=== PATIENT | male | born 1985 | race Hispanic/Latino ===

== ENCOUNTER 2017-10-08 08:32 | Inpatient (IN) | payer BC ==
[~2017-10-08] VITALS: Ht 172.7 cm; Wt 109.3 kg
[~2017-10-08 08:32] MED LIST: CILOXAN5 ML OP; FISH OIL 1,0001 EAC2 PO; LISINOPRIL-HCT1 EACH PO; PENTASA500 MG PO; PROTONIX40 MG PO
[2017-10-08] MEDS ORDERED: ACETAMINOPHEN 325 MG TAB PO ONE ×2 (09:00→09:45)
[2017-10-08 09:40] LABS: COLOR,URINE YELLOW (YELLOW)
[2017-10-08 09:43] LABS: LEUKOCYTE ESTERASE ,URINE NEGATIVE (NEGATIVE); NITRITE,URINE POSITIVE (NEGATIVE); PROTEIN,URINE DIPSTICK 2+ (NEGATIVE)
[2017-10-08 09:44] LABS: BILIRUBIN,URINE 1+ (NEGATIVE); CLARITY,URINE SL CLOUDY (CLEAR); KETONES,URINE NEGATIVE (NEGATIVE); URINE UROBILINOGEN 0.2 mg/dL (0.2 - 1)
[2017-10-08 09:45] LABS: BACTERIA,URINE FEW /HPF; EPITHELIAL CELLS,URINE RARE /LPF; MUCUS,URINE FEW (RARE); RBC,URINE 0-5 /HPF (0-5); WBC,URINE (MAN) 0-5 /HPF (0-5)
[2017-10-08 10:07] LABS: BASOPHILS % 0.1 % (0.0-1.0); EOSINOPHILS % 0.1 % (0.0-6.0); HEMATOCRIT 34.3 % (38.2-49.6); HEMOGLOBIN 12.3 g/dL (14.0-18.0); LYMPHOCYTES # (AUTO) 1.1 (1.0-3.2); LYMPHOCYTES % 6.1 % (18.0-39.1); MEAN CORPUSCULAR HEMOGLOBIN 30.1 pg (28-32); MEAN CORPUSCULAR HGB CONC 35.9 g/dL (31-35); MEAN CORPUSCULAR VOLUME 84.1 fL (81-99); MONOCYTES # (AUTO) 0.7 (0.2-0.8); NEUTROPHILS % 89.4 % (38.7-80.0); PLATELET COUNT 342 x10e3/uL (140-360); RED BLOOD COUNT 4.08 x10e6/uL (4.3-5.7); RED CELL DISTRIBUTION WIDTH 11.8 % (11.7-14.4)
[2017-10-08 10:17] LABS: ALANINE AMINOTRANSFERASE 30 IU/L (0-55); ALBUMIN 3.6 g/dL (3.5-5.0); ALBUMIN/GLOBULIN RATIO 0.9 (0.8-2.0); ALKALINE PHOSPHATASE 64 IU/L (40-150); ANION GAP 15.2 mmol/L (8-16); BLOOD UREA NITROGEN 10 mg/dL (7-26); BUN/CREATININE RATIO 12 (6-25); CALCIUM 8.9 mg/dL (8.4-10.2); CARBON DIOXIDE 21 mmol/L (22-29); CHLORIDE 100 mmol/L (98-107); CREATININE, SERUM 0.86 mg/dL (0.72-1.25); EST GLOMERULAR FILTRATION RATE > 60 ML/MIN (60-); GLUCOSE 119 mg/dL (74-118); POTASSIUM 3.2 mmol/L (3.5-5.1); SODIUM 133 mmol/L (136-145)
[2017-10-08] MEDS ORDERED: HYDROMORPHONE 1MG/1ML INJ IV STA (10:31)
[2017-10-08] MEDS ORDERED: ONDANSETRON HCL INJ 2 MG/ML VIAL IV STA (10:31)
[2017-10-08] MEDS: D5.45%NS/KCL 20MEQ 1,000 ML IV SCH ×2 (12:45→23:27)
[2017-10-08] MEDS: PIPER-TAZ 3.375 GM 50 ML IV SCH ×2 (12:45→18:26)
[2017-10-08] MEDS ORDERED: D5.45%NS/KCL 20MEQ 1,000 ML IV ONE (13:02)
[2017-10-08] MEDS ORDERED: PIPER-TAZ 3.375 GM 50 ML ONE (13:02)
[2017-10-08] MEDS ORDERED: HYDROMORPHONE 1MG/1ML INJ ONE (13:49)
[2017-10-08] MEDS ORDERED: ONDANSETRON HCL INJ 2 MG/ML VIAL ONE (13:49)
[2017-10-08] MEDS: ONDANSETRON HCL INJ 2 MG/ML VIAL IV PRN ×2 (13:51→22:11)
[2017-10-08] MEDS: HYDROMORPHONE 1MG/1ML INJ IV PRN ×3 (13:51→22:10)
[2017-10-08] MEDS: METRONIDAZOLE 500MG/NS 100ML 100 ML IV SCH ×3 (13:51→23:27)
[2017-10-08] MEDS ORDERED: METRONIDAZOLE 500MG/NS 100ML 100 ML IV ONE (13:53)
--- NOTE | 2017-10-08 14:52 | Consultation ---
DATE OF CONSULTATION: October 08, 2017 REASON FOR CONSULTATION: Acute diverticulitis with localized perforation. The patient is a pleasant, 32-year-old male admitted complaining of lower abdominal pain that began this Monday. The pain got worse. He thought it was a urinary tract infection; however, it became more severe, the reason for which he came to the emergency room. There was no history of diarrhea, vomiting, no previous episodes. PAST MEDICAL HISTORY: Unremarkable. No previous surgery. The patient in the emergency room underwent a CT scan of the abdomen and pelvis that revealed changes consistent with acute diverticulitis with small amounts of luminal air, but no abscess, all consistent with localized diverticular perforation. PHYSICAL EXAMINATION GENERAL: A 32-year-old male in no acute distress. He is awake, alert. VITAL SIGNS: His temperature was 101. Vital signs are stable. ABDOMEN: Reveals diminished bowels sounds. There is tenderness in the right lower quadrant and suprapubic region mainly. There are no scars, no masses. ADMISSION LABS: Revealed a white count of 17,000. At this point, the EMR system is down and I was not able to see the rest of the labs. IMPRESSION: Acute diverticulitis with localized perforation. PLAN: Admit, n.p.o., stabilization with IV fluids and antibiotics. Hopefully, the patient will avoid having to undergo emergency surgery. Of note is the fact that this patient [place] of the country in the near future. Job#: [id number]
--- NOTE | 2017-10-08 14:52 | Diagnostic Imaging Report ---
EXAM: CT Abdomen and Pelvis WITH contrast INDICATION: Pain/fever COMPARISON: 02/17/2016 CT TECHNIQUE: Abdomen and Pelvis was scanned utilizing a multidetector helical scanner after administration of IV contrast. Coronal and sagittal reformations were obtained. IV CONTRAST: 100 mL Isovue-370 COMPLICATIONS: None RADIATION DOSE: Total DLP:760 mGy*cm Estimated effective dose: (DLP x 0.015 x size factor) mSv CTDIvol has been reviewed. It is below the limits set by the Radiation Protocol Committee (RPC). FINDINGS: Abdomen: Lung Bases: No acute findings. Solid Organs: Liver, adrenals, kidneys, spleen, and pancreas unremarkable. Upper GI Tract: Gastric decompression limits evaluation. No small bowel obstructive changes. Vascularity: No aortic aneurysm. Lymph Nodes: No suspicious adenopathy. Other: None. Pelvis: Bladder: Unremarkable. Other: None. Colon: Sigmoid diverticulosis with significant inflammatory changes about the sigmoid colon. There is wall thickening and extraluminal gas with no rim-enhancing fluid collection. Bones: No acute findings. IMPRESSION: 1. Sigmoid diverticulitis with evidence of rupture. No rim-enhancing/drainable abscess identified. Report e-faxed at 11:43 AM. Signed by: Dr. Olman Roldan MD on 10/08/2017 11:43 AM
[2017-10-08] MEDS ORDERED: D5.45%NS/KCL 20MEQ 1,000 ML IV SCH (15:15)
[2017-10-08] MEDS ORDERED: ONDANSETRON HCL INJ 2 MG/ML VIAL IV PRN (15:15)
[2017-10-08] MEDS ORDERED: HYDROMORPHONE 1MG/1ML INJ IV PRN (15:30)
[2017-10-08 17:20] VITALS: BP 146/76
[2017-10-08 17:21] VITALS: BP 146/76
[2017-10-08] MEDS ORDERED: METRONIDAZOLE 500MG/NS 100ML 100 ML IV SCH (18:00)
[2017-10-08] MEDS ORDERED: ACETAMINOPHEN 1000 MG/100 ML IV SCH (18:00)
[2017-10-08] MEDS ORDERED: PIPER-TAZ 3.375 GM 50 ML IV SCH (18:00)
[2017-10-08] MEDS: ACETAMINOPHEN 1000 MG/100 ML IV PRN (18:01)
[2017-10-08] MEDS ORDERED: HYDRALAZINE HCL 20 MG/ML VIAL IV PRN (18:15)
--- NOTE | 2017-10-08 18:23 | History and Physical ---
REASON FOR ADMISSION: Abdominal pain. PRIMARY CARE PHYSICIAN: [facility]. HISTORY OF PRESENT ILLNESS: Mr. Virgilio Valle is a 32-year-old male. He has past medical history of hypertension for which he takes lisinopril, hydrochlorothiazide at home. He has been in his usual state of health until Monday evening. Monday evening after dinner he started having lower abdominal pain which has gradually gotten worse. Yesterday he tried several [id number]-tlg-[id number] remedies but he did not get any better. He had nausea. Denied any vomiting. He had a loose stool today and his abdominal pain was 10 out of 10 earlier this morning, and hence he presented to the emergency room at [facility] for evaluation. Here he had a CT abdomen done that showed evidence of sigmoid diverticulitis with perforation. General surgery, Dr. Ivan, was consulted. The patient was started on Zosyn and Flagyl in the emergency room. He is n.p.o. on IV fluids. His pain is currently controlled. REVIEW OF SYSTEMS: GENERAL: He had a fever of 102 on presentation. He does have fever. Denies any focal weakness. EYES: Denies any blurry vision. ENT: Denies any ears, nose or throat pain or drainage. CARDIOVASCULAR: Denies any chest pain, shortness of breath, palpitations or syncopal episodes. RESPIRATORY: Denies any cough, shortness of breath or sputum production. GI: He does have nausea. Denies any vomiting. He does have severe abdominal pain. He did have loose stool this morning. GENITOURINARY: Denies any dysuria. Denies any frequency or urgency. INTEGUMENT: Denies any ulcers or rash. MUSCULOSKELETAL: Denies any joint pain or swelling. PSYCHIATRIC: Denies any mood changes, suicidal or homicidal ideation. PAST MEDICAL HISTORY: Includes hypertension. PAST SURGICAL HISTORY: None. ALLERGIES: NO KNOWN DRUG ALLERGIES. HOME MEDICATIONS: Include lisinopril, hydrochlorothiazide. SOCIAL HISTORY: He lives at home with his fiancee. No history of smoking. He drinks alcohol occasionally. Denies any history of drug use. FAMILY HISTORY: Father has history of hypertension and history of coronary artery disease. PHYSICAL EXAMINATION VITAL SIGNS: At this time, temperature 101.3, heart rate 96, respirations 18, blood pressure 136/88, SPO2 of 100% on room air. GENERAL: On exam, the patient is awake, alert and oriented. He is in mild distress secondary to pain. HEAD: Normocephalic, atraumatic. NECK: Supple. No JVD. CARDIOVASCULAR: Regular rate and rhythm. LUNGS: Clear to auscultation bilaterally. GI: Abdomen is soft, tender to palpation in the left lower quadrant. Bowel sounds present. NEUROLOGIC: Cranial nerves II-XII grossly intact. Power and tone normal in bilateral upper and lower extremities. PSYCHIATRIC: Normal mood and affect. INTEGUMENT: No ulcers or rash noted. MUSCULOSKELETAL: No joint swelling or tenderness noted. LABORATORY DATA: CBC: WBC count of 17.8, hemoglobin 12.3, hematocrit 34.3, platelet count 342,000. BMP: Sodium 133, potassium 3.42, chloride 100, CO2 of 21, BUN 10, creatinine 0.86 and blood glucose of 119. IMAGING: CT of the abdomen showed evidence of sigmoid diverticulitis with rupture. ASSESSMENT: A 32-year-old male with. 1. Acute sigmoid diverticulitis with rupture. 2. Leukocytosis/fever/sepsis present on admission. 3. Hypokalemia. 4. Obesity. 5. History of hypertension. PLAN: The patient will be admitted to the hospital. He will be a full admission. Will keep the patient strictly n.p.o. on IV fluids, IV Zosyn and Flagyl. Serial abdominal exams. will repeat the labs in the morning. Will replace his potassium. His blood pressure is currently stable. Will place him on p.r.n. hydralazine as needed. Will closely follow him during the hospital stay. General surgery, Dr. Ivan, was consulted to evaluate the patient as well. I have discussed with the patient at the bedside regarding the plan of care. Job#: [id number]
[2017-10-08] MEDS ORDERED: SODIUM CHLORIDE 0.9% 50ML 50 ML ONE (18:55)
[2017-10-08] MEDS ORDERED: IOPAMIDOL 370 MG/ML 200 ML INFUS..BTL INJ ONE (18:55)
[2017-10-08 20:00] VITALS: BP 144/74
[2017-10-08 21:04] VITALS: BP 144/74
[2017-10-09] VITALS (9 sets, daily range): BP systolic 114–140; BP diastolic 59–82
[2017-10-09] MEDS: ACETAMINOPHEN 1000 MG/100 ML IV PRN ×2 (00:20→14:00)
[2017-10-09] MEDS: PIPER-TAZ 3.375 GM 50 ML IV SCH ×4 (00:49→17:38)
[2017-10-09] MEDS: METRONIDAZOLE 500MG/NS 100ML 100 ML IV SCH ×4 (04:52→23:27)
[2017-10-09] MEDS: ONDANSETRON HCL INJ 2 MG/ML VIAL IV PRN ×4 (05:14→23:33)
[2017-10-09] MEDS: HYDROMORPHONE 1MG/1ML INJ IV PRN ×5 (05:14→23:33)
[2017-10-09 05:35] LABS: BASOPHILS % 0.2 % (0.0-1.0); EOSINOPHILS # (AUTO) 0.1 (0.0-0.4); EOSINOPHILS % 0.3 % (0.0-6.0); HEMATOCRIT 31.5 % (38.2-49.6); HEMOGLOBIN 11.1 g/dL (14.0-18.0); LYMPHOCYTES # (AUTO) 1.5 (1.0-3.2); LYMPHOCYTES % 8.5 % (18.0-39.1); MEAN CORPUSCULAR HEMOGLOBIN 30.3 pg (28-32); MEAN CORPUSCULAR HGB CONC 35.2 g/dL (31-35); MEAN CORPUSCULAR VOLUME 86.1 fL (81-99); MONOCYTES # (AUTO) 0.9 (0.2-0.8); NEUTROPHILS # (AUTO) 14.9 (2.1-6.9); NEUTROPHILS % 85.4 % (38.7-80.0); PLATELET COUNT 302 x10e3/uL (140-360); RED BLOOD COUNT 3.66 x10e6/uL (4.3-5.7); RED CELL DISTRIBUTION WIDTH 11.9 % (11.7-14.4)
[2017-10-09 05:56] LABS: ANION GAP 12.2 mmol/L (8-16); BLOOD UREA NITROGEN 7 mg/dL (7-26); BUN/CREATININE RATIO 8 (6-25); CALCIUM 8.6 mg/dL (8.4-10.2); CARBON DIOXIDE 25 mmol/L (22-29); CHLORIDE 101 mmol/L (98-107); CREATININE, SERUM 0.93 mg/dL (0.72-1.25); EST GLOMERULAR FILTRATION RATE > 60 ML/MIN (60-); GLUCOSE 108 mg/dL (74-118); POTASSIUM 3.2 mmol/L (3.5-5.1); SODIUM 135 mmol/L (136-145)
[2017-10-09] MEDS: PANTOPRAZOLE 40 MG 10ML VIAL IV SCH (11:06)
[2017-10-09] MEDS: D5.45%NS/KCL 20MEQ 1,000 ML IV SCH ×2 (11:06→23:17)
[2017-10-09] MEDS: LEVOFLOXACIN 500MG/D5W 100ML 100 ML IV SCH (12:58)
[2017-10-10] VITALS (7 sets, daily range): BP systolic 127–136; BP diastolic 58–75
[2017-10-10] MEDS: PIPER-TAZ 3.375 GM 50 ML IV SCH ×4 (00:30→19:08)
[2017-10-10] MEDS: HYDROMORPHONE 1MG/1ML INJ IV PRN ×5 (04:00→23:57)
[2017-10-10] MEDS: ONDANSETRON HCL INJ 2 MG/ML VIAL IV PRN ×5 (04:06→23:57)
[2017-10-10 05:44] LABS: BASOPHILS % 0.1 % (0.0-1.0); EOSINOPHILS # (AUTO) 0.1 (0.0-0.4); EOSINOPHILS % 0.6 % (0.0-6.0); HEMATOCRIT 31.6 % (38.2-49.6); LYMPHOCYTES # (AUTO) 1.4 (1.0-3.2); LYMPHOCYTES % 9.2 % (18.0-39.1); MEAN CORPUSCULAR HGB CONC 34.8 g/dL (31-35); MEAN CORPUSCULAR VOLUME 86.1 fL (81-99); MONOCYTES # (AUTO) 0.7 (0.2-0.8); MONOCYTES % 4.8 % (4.4-11.3); NEUTROPHILS # (AUTO) 12.7 (2.1-6.9); NEUTROPHILS % 84.8 % (38.7-80.0); PLATELET COUNT 350 x10e3/uL (140-360); RED BLOOD COUNT 3.67 x10e6/uL (4.3-5.7); RED CELL DISTRIBUTION WIDTH 11.9 % (11.7-14.4)
[2017-10-10] MEDS: METRONIDAZOLE 500MG/NS 100ML 100 ML IV SCH ×4 (06:00→23:51)
[2017-10-10 06:02] LABS: ANION GAP 13.3 mmol/L (8-16); BLOOD UREA NITROGEN 7 mg/dL (7-26); BUN/CREATININE RATIO 8 (6-25); CALCIUM 8.5 mg/dL (8.4-10.2); CARBON DIOXIDE 24 mmol/L (22-29); CHLORIDE 102 mmol/L (98-107); CREATININE, SERUM 0.87 mg/dL (0.72-1.25); EST GLOMERULAR FILTRATION RATE > 60 ML/MIN (60-); GLUCOSE 117 mg/dL (74-118); POTASSIUM 3.3 mmol/L (3.5-5.1); SODIUM 136 mmol/L (136-145)
[2017-10-10] MEDS: ACETAMINOPHEN 1000 MG/100 ML IV PRN ×2 (06:13→20:42)
[2017-10-10] MEDS: PANTOPRAZOLE 40 MG 10ML VIAL IV SCH (07:45)
[2017-10-10] MEDS: D5.45%NS/KCL 20MEQ 1,000 ML IV SCH ×2 (11:05→14:18)
[2017-10-10] MEDS: LEVOFLOXACIN 500MG/D5W 100ML 100 ML IV SCH (12:24)
[2017-10-11] VITALS (10 sets, daily range): BP systolic 111–135; BP diastolic 56–70
[2017-10-11] MEDS: D5.45%NS/KCL 20MEQ 1,000 ML IV SCH ×5 (00:35→23:16)
[2017-10-11] MEDS: PIPER-TAZ 3.375 GM 50 ML IV SCH ×5 (00:35→23:15)
[2017-10-11 05:00] LABS: BASOPHILS # (AUTO) 0.1 (0.0-0.1); BASOPHILS % 0.5 % (0.0-1.0); EOSINOPHILS # (AUTO) 0.2 (0.0-0.4); EOSINOPHILS % 1.6 % (0.0-6.0); HEMATOCRIT 32.9 % (38.2-49.6); HEMOGLOBIN 11.5 g/dL (14.0-18.0); LYMPHOCYTES # (AUTO) 1.8 (1.0-3.2); LYMPHOCYTES % 16.6 % (18.0-39.1); MEAN CORPUSCULAR HEMOGLOBIN 30.1 pg (28-32); MEAN CORPUSCULAR VOLUME 86.1 fL (81-99); MONOCYTES # (AUTO) 0.6 (0.2-0.8); MONOCYTES % 5.1 % (4.4-11.3); NEUTROPHILS # (AUTO) 8.4 (2.1-6.9); NEUTROPHILS % 75.7 % (38.7-80.0); PLATELET COUNT 382 x10e3/uL (140-360); RED BLOOD COUNT 3.82 x10e6/uL (4.3-5.7)
[2017-10-11 05:28] LABS: ANION GAP 13.1 mmol/L (8-16); BLOOD UREA NITROGEN 6 mg/dL (7-26); BUN/CREATININE RATIO 7 (6-25); CALCIUM 8.8 mg/dL (8.4-10.2); CARBON DIOXIDE 26 mmol/L (22-29); CHLORIDE 103 mmol/L (98-107); CREATININE, SERUM 0.88 mg/dL (0.72-1.25); EST GLOMERULAR FILTRATION RATE > 60 ML/MIN (60-); GLUCOSE 100 mg/dL (74-118); POTASSIUM 3.1 mmol/L (3.5-5.1); SODIUM 139 mmol/L (136-145)
[2017-10-11] MEDS ORDERED: ACETAMINOPHEN 1000 MG/100 ML IV PRN (05:30)
[2017-10-11] MEDS: METRONIDAZOLE 500MG/NS 100ML 100 ML IV SCH ×3 (05:31→18:20)
[2017-10-11] MEDS: HYDROMORPHONE 1MG/1ML INJ IV PRN ×4 (05:42→23:05)
[2017-10-11] MEDS: ONDANSETRON HCL INJ 2 MG/ML VIAL IV PRN ×4 (05:43→23:17)
[2017-10-11] MEDS: PANTOPRAZOLE 40 MG 10ML VIAL IV SCH (09:12)
[2017-10-11] MEDS: LEVOFLOXACIN 500MG/D5W 100ML 100 ML IV SCH (14:01)
[2017-10-11] MEDS ORDERED: POTASSIUM CHLORIDE 20 MEQ TAB CR PO STA (15:10)
[2017-10-12] VITALS (7 sets, daily range): BP systolic 122–132; BP diastolic 60–74
[2017-10-12] MEDS: METRONIDAZOLE 500MG/NS 100ML 100 ML IV SCH ×5 (00:01→22:54)
[2017-10-12] MEDS: HYDROMORPHONE 1MG/1ML INJ IV PRN ×3 (05:15→21:31)
[2017-10-12] MEDS: ONDANSETRON HCL INJ 2 MG/ML VIAL IV PRN ×3 (05:15→23:04)
[2017-10-12] MEDS: PIPER-TAZ 3.375 GM 50 ML IV SCH ×3 (06:15→17:57)
[2017-10-12] MEDS: PANTOPRAZOLE 40 MG 10ML VIAL IV SCH (09:45)
[2017-10-12] MEDS: D5.45%NS/KCL 20MEQ 1,000 ML IV SCH ×3 (10:36→22:58)
[2017-10-12 11:12] LABS: BASOPHILS # (AUTO) 0.1 (0.0-0.1); BASOPHILS % 0.4 % (0.0-1.0); EOSINOPHILS # (AUTO) 0.2 (0.0-0.4); EOSINOPHILS % 1.5 % (0.0-6.0); HEMATOCRIT 35.2 % (38.2-49.6); HEMOGLOBIN 12.5 g/dL (14.0-18.0); LYMPHOCYTES # (AUTO) 1.8 (1.0-3.2); LYMPHOCYTES % 15.6 % (18.0-39.1); MEAN CORPUSCULAR HEMOGLOBIN 30.6 pg (28-32); MEAN CORPUSCULAR HGB CONC 35.5 g/dL (31-35); MEAN CORPUSCULAR VOLUME 86.3 fL (81-99); MONOCYTES # (AUTO) 0.6 (0.2-0.8); MONOCYTES % 5.1 % (4.4-11.3); NEUTROPHILS # (AUTO) 8.7 (2.1-6.9); PLATELET COUNT 441 x10e3/uL (140-360); RED BLOOD COUNT 4.08 x10e6/uL (4.3-5.7)
[2017-10-12 11:28] LABS: ANION GAP 13.3 mmol/L (8-16); BLOOD UREA NITROGEN 5 mg/dL (7-26); BUN/CREATININE RATIO 6 (6-25); CALCIUM 8.9 mg/dL (8.4-10.2); CARBON DIOXIDE 26 mmol/L (22-29); CHLORIDE 101 mmol/L (98-107); CREATININE, SERUM 0.83 mg/dL (0.72-1.25); EST GLOMERULAR FILTRATION RATE > 60 ML/MIN (60-); GLUCOSE 90 mg/dL (74-118); POTASSIUM 3.3 mmol/L (3.5-5.1); SODIUM 137 mmol/L (136-145)
[2017-10-12] MEDS: LEVOFLOXACIN 500MG/D5W 100ML 100 ML IV SCH (14:23)
[2017-10-12] MEDS ORDERED: POTASSIUM CHLORIDE 20 MEQ TAB CR PO ONE (16:50)
[2017-10-13] VITALS (8 sets, daily range): BP systolic 114–132; BP diastolic 55–71
[2017-10-13] MEDS: PIPER-TAZ 3.375 GM 50 ML IV SCH ×5 (00:18→23:30)
[2017-10-13 05:56] LABS: BASOPHILS # (AUTO) 0.1 (0.0-0.1); BASOPHILS % 0.6 % (0.0-1.0); EOSINOPHILS # (AUTO) 0.2 (0.0-0.4); EOSINOPHILS % 2.2 % (0.0-6.0); HEMATOCRIT 34.3 % (38.2-49.6); LYMPHOCYTES # (AUTO) 2.1 (1.0-3.2); MEAN CORPUSCULAR VOLUME 85.8 fL (81-99); MONOCYTES # (AUTO) 0.6 (0.2-0.8); MONOCYTES % 5.6 % (4.4-11.3); NEUTROPHILS # (AUTO) 6.9 (2.1-6.9); PLATELET COUNT 462 x10e3/uL (140-360); RED CELL DISTRIBUTION WIDTH 11.9 % (11.7-14.4)
[2017-10-13] MEDS: METRONIDAZOLE 500MG/NS 100ML 100 ML IV SCH ×4 (06:06→23:55)
[2017-10-13] MEDS: HYDROMORPHONE 1MG/1ML INJ IV PRN ×2 (06:07→22:00)
[2017-10-13] MEDS: ONDANSETRON HCL INJ 2 MG/ML VIAL IV PRN ×3 (06:07→19:45)
[2017-10-13 06:24] LABS: ANION GAP 10.7 mmol/L (8-16); BLOOD UREA NITROGEN 5 mg/dL (7-26); BUN/CREATININE RATIO 6 (6-25); CALCIUM 9.1 mg/dL (8.4-10.2); CARBON DIOXIDE 26 mmol/L (22-29); CHLORIDE 103 mmol/L (98-107); CREATININE, SERUM 0.88 mg/dL (0.72-1.25); EST GLOMERULAR FILTRATION RATE > 60 ML/MIN (60-); GLUCOSE 100 mg/dL (74-118); POTASSIUM 3.7 mmol/L (3.5-5.1); SODIUM 136 mmol/L (136-145)
[2017-10-13] MEDS: PANTOPRAZOLE 40 MG 10ML VIAL IV SCH (08:06)
[2017-10-13] MEDS: D5.45%NS/KCL 20MEQ 1,000 ML IV SCH ×2 (08:06→21:50)
[2017-10-13] MEDS ORDERED: LEVAQUIN500 MG PO (13:12)
[2017-10-13] MEDS ORDERED: METRONIDAZOLE500 MG PO (13:12)
[2017-10-13] MEDS: LEVOFLOXACIN 500MG/D5W 100ML 100 ML IV SCH (13:32)
--- NOTE | 2017-10-13 14:26 | Consultation ---
DATE OF CONSULTATION: October 13, 2017 ATTENDING PHYSICIAN: Dr. Vargas. Thank you Dr. Brian and Dr. Vargas for asking me to see this patient. HISTORY: The patient is a 32-year-old man referred for discharge antibiotics recommendation. He was admitted through the emergency department with acute diverticulitis of the colon. He presented to the emergency department with progressive left lower quadrant pain, associated with fever. There was no nausea, vomiting or diarrhea. In the emergency department, he was noted to have a temperature of 101.3 degrees Fahrenheit, pulse 96, respiratory rate 18, blood pressure 136/88 and oxygen saturation 100% on room air. Initial laboratory studies showed white blood cell count of 17,570 with 85.4% neutrophils, BUN 7, and creatinine 0.93. CT scan of the abdomen and pelvis showed sigmoid diverticulitis with evidence of rupture but no drainable abscess. The patient feels better and is scheduled to wed on 10/19/2017 in [facility]. PAST MEDICAL HISTORY: Hypertension, hyperlipidemia and ? enterocolitis. PAST SURGICAL HISTORY: Small bowel obstruction treated with conservative management. ALLERGIES: No known drug allergies. MEDICATIONS: See MAR. The current antibiotic is Zosyn 3.375 grams IV piggyback q.6 q.6 hours, Levaquin 500 mg IV piggyback q.24 hours and metronidazole 500 mg IV piggyback q.8 hours. FAMILY HISTORY: Noncontributory. SOCIAL HISTORY: No tobacco use. He drinks alcohol very occasionally. REVIEW OF SYSTEMS: As per history of present illness. PHYSICAL EXAMINATION GENERAL: In no acute distress and does not appear toxic. VITAL SIGNS: T-max 98.5, pulse 60, respiratory rate 18, blood pressure 122/55. Weight 240 pounds. HEENT: Normocephalic. There is no icterus or injection of conjunctivae. There is no ear or nasal discharge. Moist oral mucosa. No pharyngeal erythema or exudate. NECK: Supple. No lymphadenopathy or meningismus. LUNGS: Clear to auscultation bilaterally. HEART: Normal S1 and S2. ABDOMEN: Soft and nontender. EXTREMITIES: There is no edema, clubbing or cyanosis. SKIN: There is no acute erythema. AS400 ANALYST: Awake, alert and oriented to person, place and time. Nonfocal. LABORATORY AND DIAGNOSTICS: WBC 9,903, hemoglobin 12, platelets 462,000, neutrophil 70, lymph 21, mono 5.6, eosinophil 2.2, basophil 0.6. BUN 5, creatinine 0.88. IMPRESSION: Acute sigmoid diverticulitis with probable microperforation, present on admission. PLAN: Patient may be discharged on levofloxacin 500 mg orally daily and metronidazole 500 mg orally q.8 hours for 10 days. Side effects of medications and their management was discussed with the patient in detail. Job#: [id number] JAI MTDD
[2017-10-14] VITALS: BP 115/57
[2017-10-14 04:00] VITALS: BP 121/68
[2017-10-14] MEDS: D5.45%NS/KCL 20MEQ 1,000 ML IV SCH (06:30)
[2017-10-14] MEDS: PIPER-TAZ 3.375 GM 50 ML IV SCH ×2 (06:30→11:04)
[2017-10-14 07:25] LABS: BASOPHILS # (AUTO) 0.1 (0.0-0.1); BASOPHILS % 0.6 % (0.0-1.0); EOSINOPHILS # (AUTO) 0.3 (0.0-0.4); EOSINOPHILS % 2.9 % (0.0-6.0); HEMATOCRIT 36.5 % (38.2-49.6); HEMOGLOBIN 12.8 g/dL (14.0-18.0); LYMPHOCYTES # (AUTO) 2.1 (1.0-3.2); LYMPHOCYTES % 24.5 % (18.0-39.1); MEAN CORPUSCULAR HEMOGLOBIN 30.3 pg (28-32); MEAN CORPUSCULAR HGB CONC 35.1 g/dL (31-35); MEAN CORPUSCULAR VOLUME 86.5 fL (81-99); MONOCYTES # (AUTO) 0.5 (0.2-0.8); MONOCYTES % 5.9 % (4.4-11.3); NEUTROPHILS # (AUTO) 5.6 (2.1-6.9); NEUTROPHILS % 65.3 % (38.7-80.0); PLATELET COUNT 493 x10e3/uL (140-360); RED BLOOD COUNT 4.22 x10e6/uL (4.3-5.7); RED CELL DISTRIBUTION WIDTH 12.1 % (11.7-14.4)
[2017-10-14 07:39] LABS: BLOOD UREA NITROGEN 5 mg/dL (7-26); BUN/CREATININE RATIO 5 (6-25); CALCIUM 9.2 mg/dL (8.4-10.2); CARBON DIOXIDE 28 mmol/L (22-29); CHLORIDE 103 mmol/L (98-107); CREATININE, SERUM 1.07 mg/dL (0.72-1.25); EST GLOMERULAR FILTRATION RATE > 60 ML/MIN (60-); GLUCOSE 103 mg/dL (74-118); MAGNESIUM 1.8 MG/DL (1.3-2.1); SODIUM 137 mmol/L (136-145)
[2017-10-14 07:55] VITALS: BP 121/68
[2017-10-14] MEDS: PANTOPRAZOLE 40 MG 10ML VIAL IV SCH (07:56)
[2017-10-14] MEDS: METRONIDAZOLE 500MG/NS 100ML 100 ML IV SCH (08:01)
[2017-10-14 08:12] VITALS: BP 116/59
[2017-10-14] MEDS ORDERED: LEVOFLOXACIN 500 MG TAB PO SCH (11:00)
[2017-10-14 11:56] VITALS: BP 136/69
[2017-10-14] MEDS ORDERED: METRONIDAZOLE 500 MG TAB PO SCH (12:00)
--- NOTE | 2017-10-14 15:50 | Discharge Summary ---
ADMITTING DIAGNOSIS: Acute diverticulitis with perforation. DISCHARGE DIAGNOSIS: Acute diverticulitis with perforation. HOSPITALIZATION SUMMARY: Mr. Valle is a 32-year-old man with a history of hypertension who presents with an episode of diverticulitis of the sigmoid colon with perforation. Dr. Ivan evaluated the patient. The patient was initiated on Zosyn and Flagyl from the emergency department, as well as IV fluids. His course was followed by improvement and recovering symptoms. He defervesced and afebrile. White count has normalized. Symptoms have resolved. No belly pain or other reported symptoms. Infectious disease was consulted to assist with outpatient disp plan management and antibiotics. Levofloxacin 500 mg daily for 10 days and metronidazole 500 mg q.8 h. for 10 days have been prescribed in response to recommendations. The patient is being discharged in improved state. CONDITION UPON DISCHARGE: Improved. FOLLOWUP: Dr. Nathan Reece, GI and with family MD primary care provider, as well as with Dr. Ivan all within the next 1-2 weeks. For medications upon discharge, please see medication reconciliation form. GIOVANNI CRUZ MD Job#: [id number] AK
== END 2017-10-14 14:41 | disposition home or self-care (01) | DRG 872 ==
LOC: ER 08:32 → ERHOLD 16:24 → MED/SURG3 17:13
PROVIDERS: ADMIT Family Medicine; ATTEND Family Medicine
DX: A41.9 Sepsis, unspecified organism (principal); K57.20 Diverticulitis of large intestine with perforation and abscess without bleeding; E87.6 Hypokalemia; E66.9 Obesity, unspecified; Z68.36 Body mass index [BMI] 36.0-36.9, adult; E78.5 Hyperlipidemia, unspecified
CPT/HCPCS: 36415; 74177; 80048; 80053; 81001; 83735; 85025; 96361; 99284; J1170; J1956; J2405; J2543; Q9967

== ENCOUNTER 2017-10-26 14:34 | Inpatient (IN) | payer BC ==
[~2017-10-26] VITALS: Ht 172.7 cm; Wt 104.5 kg
[~2017-10-26 14:34] MED LIST changes: +LEVAQUIN500 MG PO; +METRONIDAZOLE500 MG PO
[2017-10-26] MEDS ORDERED: SODIUM CHLORIDE 0.9% 1000ML 1,000 ML IV STA (15:17)
[2017-10-26] MEDS ORDERED: MORPHINE SULFATE INJ 4 MG/ML INJ IV STA (15:17)
[2017-10-26] MEDS ORDERED: ONDANSETRON HCL INJ 2 MG/ML VIAL IV STA (15:17)
[2017-10-26] MEDS ORDERED: DIATRIZOATE MEGL/DIATRIZOA SOD 30 ML BTL PO ONE (15:33)
[2017-10-26 16:05] LABS: BASOPHILS % 0.2 % (0.0-1.0); EOSINOPHILS % 0.3 % (0.0-6.0); HEMATOCRIT 38.2 % (38.2-49.6); HEMOGLOBIN 13.2 g/dL (14.0-18.0); LYMPHOCYTES # (AUTO) 1.2 (1.0-3.2); LYMPHOCYTES % 8.6 % (18.0-39.1); MEAN CORPUSCULAR HEMOGLOBIN 30.3 pg (28-32); MEAN CORPUSCULAR HGB CONC 34.6 g/dL (31-35); MEAN CORPUSCULAR VOLUME 87.8 fL (81-99); MONOCYTES # (AUTO) 0.5 (0.2-0.8); MONOCYTES % 3.4 % (4.4-11.3); NEUTROPHILS # (AUTO) 12.5 (2.1-6.9); PLATELET COUNT 505 x10e3/uL (140-360); RED BLOOD COUNT 4.35 x10e6/uL (4.3-5.7); RED CELL DISTRIBUTION WIDTH 12.2 % (11.7-14.4)
[2017-10-26 16:20] LABS: ALANINE AMINOTRANSFERASE 25 IU/L (0-55); ALBUMIN/GLOBULIN RATIO 0.9 (0.8-2.0); ALKALINE PHOSPHATASE 59 IU/L (40-150); ANION GAP 17.2 mmol/L (8-16); BLOOD UREA NITROGEN 12 mg/dL (7-26); BUN/CREATININE RATIO 14 (6-25); CALCIUM 10.1 mg/dL (8.4-10.2); CARBON DIOXIDE 24 mmol/L (22-29); CHLORIDE 101 mmol/L (98-107); CREATININE, SERUM 0.86 mg/dL (0.72-1.25); EST GLOMERULAR FILTRATION RATE > 60 ML/MIN (60-); GLUCOSE 100 mg/dL (74-118); LIPASE 16 U/L (8-78); POTASSIUM 4.2 mmol/L (3.5-5.1); SODIUM 138 mmol/L (136-145)
[2017-10-26 16:24] LABS: CLARITY,URINE CLEAR (CLEAR); COLOR,URINE YELLOW (YELLOW)
[2017-10-26 16:25] LABS: BILIRUBIN,URINE NEGATIVE (NEGATIVE); KETONES,URINE NEGATIVE (NEGATIVE); LEUKOCYTE ESTERASE ,URINE TRACE (NEGATIVE); NITRITE,URINE NEGATIVE (NEGATIVE); PROTEIN,URINE DIPSTICK NEGATIVE (NEGATIVE); URINE UROBILINOGEN 0.2 mg/dL (0.2 - 1)
[2017-10-26 16:43] LABS: EPITHELIAL CELLS,URINE RARE /LPF; RBC,URINE 0-5 /HPF (0-5); WBC,URINE (MAN) 0-5 /HPF (0-5)
--- NOTE | 2017-10-26 17:53 | Diagnostic Imaging Report ---
EXAMINATION: CT of the abdomen and pelvis with contrast. TECHNIQUE: Spiral CT images of the abdomen and pelvis were performed from the lung bases to the lesser trochanters after the intravenous administration of 100 cc of Isovue 370 and the oral administration of dilute Gastrografin. Coronal and sagittal reformatted images were obtained. COMPARISON: CT abdomen and pelvis 10/08/2017 CLINICAL HISTORY:Diagnosed with diverticulitis 2 weeks ago. Recurrence of left lower quadrant pain after antibiotics have finished DISCUSSION: ABDOMEN/PELVIS: LOWER THORAX:Stable linear scarring in the lingula. HEPATOBILIARY: No focal hepatic lesions. No intra or extrahepatic biliary ductal dilation. GALLBLADDER: No radio-opaque stones or sludge. No wall thickening. SPLEEN: No splenomegaly. PANCREAS: No focal masses or ductal dilatation. ADRENALS: No adrenal nodules. KIDNEYS/URETERS: No hydronephrosis, stones, or solid mass lesions. PELVIC ORGANS/BLADDER: Bladder and prostate are unremarkable. PERITONEUM/RETROPERITONEUM: No free air or fluid. LYMPH NODES: No intra-abdominal, retroperitoneal, pelvic or inguinal lymphadenopathy. VESSELS: The celiac trunk,superior and inferior mesenteric and bilateral renal arteries are patent The portal, superior mesenteric and splenic veins are patent. GI TRACT: Descending and sigmoid colon diverticulosis is again noted. There is an approximately 8-9 cm portion of the proximal sigmoid colon which shows moderate wall thickening and to marked surrounding inflammatory fat stranding (series 2, image 67 and coronal image 33), which extends cranially to involve a loop of proximal ileum, which shows moderate wall thickening (coronal image 43 and series 2, image 56). There are several foci of extraluminal air in the sigmoid mesentery (series 2, images 64 and 65). No adjacent well-defined enhancing fluid collections. Rest of the bowel shows no dilation or obstruction. Mild wall thickening is noted in the terminal ileum (coronal images 51-55 and series 2, images 56-66)) without surrounding inflammatory changes.. Appendix is well identified and normal in caliber. BONES AND SOFT TISSUE: No aggressive lytic lesions. Small fat-containing umbilical hernia. IMPRESSION: 1. Findings consistent with proximal sigmoid diverticulitis, with several foci of extra luminal air in the sigmoid mesentery, suggesting contained perforation. No adjacent abscess. 2. Moderate wall thickening in loop of ileum located superior to the sigmoid colon, which is felt to represent reactive change secondary to sigmoid inflammation and less likely focal enteritis. 3. Mild wall thickening in the terminal ileum without surrounding inflammatory changes., Correlate for prior history of inflammatory bowel disease. Signed by: Dr. Duc Villeda M.D. on 10/26/2017 5:50 PM
[2017-10-26] MEDS ORDERED: SODIUM CHLORIDE 0.9% 50ML 50 ML ONE (19:14)
[2017-10-26] MEDS ORDERED: IOPAMIDOL 370 MG/ML 200 ML INFUS..BTL INJ ONE (19:15)
[2017-10-26] MEDS ORDERED: MORPHINE SULFATE 2 MG/ML SYR IV PRN (19:15)
[2017-10-26] MEDS ORDERED: MORPHINE SULFATE INJ 4 MG/ML INJ IV PRN (19:15)
[2017-10-26] MEDS: SODIUM CHLORIDE 0.9% 1000ML 1,000 ML IV SCH (19:47)
[2017-10-26] MEDS: HYDROMORPHONE 1MG/1ML INJ IV PRN (20:30)
[2017-10-26] MEDS: ONDANSETRON HCL INJ 2 MG/ML VIAL IV PRN (20:30)
[2017-10-26] MEDS: METRONIDAZOLE 500MG/NS 100ML 100 ML IV SCH (20:37)
[2017-10-26 21:25] VITALS: BP 153/84
[2017-10-26 21:52] VITALS: BP 153/84
[2017-10-27] VITALS (16 sets, daily range): BP systolic 113–140; BP diastolic 65–95
[2017-10-27] MEDS: HYDROMORPHONE 1MG/1ML INJ IV PRN ×3 (00:32→09:03)
[2017-10-27] MEDS: ONDANSETRON HCL INJ 2 MG/ML VIAL IV PRN ×4 (00:32→21:21)
[2017-10-27] MEDS: SODIUM CHLORIDE 0.9% 1000ML 1,000 ML IV SCH ×3 (04:26→19:01)
[2017-10-27 04:43] LABS: BASOPHILS % 0.3 % (0.0-1.0); EOSINOPHILS # (AUTO) 0.1 (0.0-0.4); EOSINOPHILS % 0.9 % (0.0-6.0); HEMATOCRIT 33.6 % (38.2-49.6); HEMOGLOBIN 11.4 g/dL (14.0-18.0); LYMPHOCYTES # (AUTO) 1.5 (1.0-3.2); MEAN CORPUSCULAR HEMOGLOBIN 30.2 pg (28-32); MEAN CORPUSCULAR HGB CONC 33.9 g/dL (31-35); MEAN CORPUSCULAR VOLUME 88.9 fL (81-99); MONOCYTES # (AUTO) 0.5 (0.2-0.8); MONOCYTES % 5.6 % (4.4-11.3); NEUTROPHILS # (AUTO) 7.2 (2.1-6.9); NEUTROPHILS % 76.6 % (38.7-80.0); PLATELET COUNT 412 x10e3/uL (140-360); RED BLOOD COUNT 3.78 x10e6/uL (4.3-5.7); RED CELL DISTRIBUTION WIDTH 12.3 % (11.7-14.4)
[2017-10-27 05:05] LABS: ALANINE AMINOTRANSFERASE 19 IU/L (0-55); ALBUMIN 3.3 g/dL (3.5-5.0); ALBUMIN/GLOBULIN RATIO 0.9 (0.8-2.0); ALKALINE PHOSPHATASE 46 IU/L (40-150); ANION GAP 13.6 mmol/L (8-16); BLOOD UREA NITROGEN 8 mg/dL (7-26); BUN/CREATININE RATIO 9 (6-25); CARBON DIOXIDE 24 mmol/L (22-29); CHLORIDE 102 mmol/L (98-107); CREATININE, SERUM 0.93 mg/dL (0.72-1.25); EST GLOMERULAR FILTRATION RATE > 60 ML/MIN (60-); GLUCOSE 97 mg/dL (74-118); POTASSIUM 3.6 mmol/L (3.5-5.1); SODIUM 136 mmol/L (136-145)
[2017-10-27] MEDS: METRONIDAZOLE 500MG/NS 100ML 100 ML IV SCH ×3 (06:03→21:21)
[2017-10-27] MEDS ORDERED: CEFTRIAXONE SOD 1 GM VIAL IV ONE (09:00)
--- NOTE | 2017-10-27 10:59 | Consultation ---
DATE OF CONSULTATION: October 27, 2017 REASON FOR CONSULTATION: Recurrent acute diverticulitis with failed outpatient treatment. HPI: The patient is a 33-year-old male, known to me for a recent previous admission, for which he was admitted with diverticulitis. The patient was treated medically with intravenous antibiotics. Once his symptomatology resolved, he was discharged on oral antibiotics. Patient now presents with recurrent left lower quadrant pain, leukocytosis, and fever. A CT scan shows phlegmonous and inflammatory changes of the sigmoid colon as well as now involvement of the small bowel, which was not present on the previous CAT scan during the previous admission. The patient's past history is essentially unremarkable. He has a history of ileitis in the past and had been worked up for inflammatory bowel disease and it was negative. PHYSICAL EXAMINATION GENERAL: Reveals a 33-year-old male, in no acute distress. VITAL SIGNS: He has got a temperature of 100, with stable vital signs. HEAD, EARS, NOSE AND THROAT: Unremarkable. LUNGS: Clear. HEART: Regular sinus rhythm. ABDOMEN: Reveals tenderness with mild rebound in the left lower quadrant and the suprapubic region. LABORATORY DATA: Admission laboratories reveal a WBC of 14 with hematocrit of 38. Admission electrolytes are normal. Admission blood sugar is also normal. The CAT scan findings have been described. ASSESSMENT: Recurrent diverticulitis with perforation, failed medical treatment with worsening CT scan findings of now new inflammatory changes involving the small bowel contiguous with the colon. PLAN: The plan is to proceed with exploratory laparotomy, bowel resection, and possible colostomy. The patient is aware of the likelihood that he will be requiring a colostomy due to the acute condition and surgery at this time. He agrees with the surgical plan. Job#: [id number] RUFUS
[2017-10-27] MEDS ORDERED: MORPHINE SULFATE INJ 10 MG/ML ONE (12:39)
[2017-10-27] MEDS ORDERED: MIDAZOLAM HCL 2 MG/2 ML VIAL ONE (12:39)
[2017-10-27] MEDS ORDERED: FENTANYL CITRATE/PF 100MCG/2 ML INJ ONE ×2 (12:39→15:02)
[2017-10-27] MEDS ORDERED: SEVOFLURANE INHAL SOLN 250 ML PEN BTL ONE (13:24)
[2017-10-27] MEDS ORDERED: DEXAMETHASONE SOD PHOS INJ 4 MG/ML VIAL ONE (13:24)
[2017-10-27] MEDS ORDERED: ROCURONIUM BROMIDE 10 MG/ML 5ML VIAL ONE (13:24)
[2017-10-27] MEDS ORDERED: PROPOFOL IV EMULSION 10 MG/ML 20 ML VIAL ONE (13:24)
[2017-10-27] MEDS ORDERED: ONDANSETRON HCL INJ 2 MG/ML VIAL ONE (13:24)
[2017-10-27] MEDS ORDERED: ACETAMINOPHEN 1000 MG/100 ML IV ONE (13:24)
[2017-10-27] MEDS ORDERED: HYDROMORPHONE 0.2MG/ML-SOD CHL 30ML PCA SYRINGE IV ONE (15:13)
[2017-10-27] MEDS ORDERED: NALOXONE HCL INJ 0.4 MG/ML AMP IV PRN (15:15)
[2017-10-27] MEDS ORDERED: DIPHENHYDRAMINE HCL INJ 50 MG/ML VIAL IM PRN (15:15)
[2017-10-27] MEDS: KETOROLAC TROMETHAMINE 30 MG/ML VIAL IV PRN (16:12)
[2017-10-27] MEDS: PANTOPRAZOLE 40 MG 10ML VIAL IV SCH (16:13)
--- NOTE | 2017-10-27 16:31 | Operative Report ---
DATE OF PROCEDURE: PREOPERATIVE DIAGNOSIS: Perforated sigmoid diverticulitis with phlegmon formation and failed medical treatment, both inpatient and outpatient. POSTOPERATIVE DIAGNOSIS: Perforated sigmoid diverticulitis with phlegmon formation and failed medical treatment, both inpatient and outpatient. PROCEDURE PERFORMED: Exploratory laparotomy, small-bowel resection, Steven procedure. ESTIMATED BLOOD LOSS: 200 mL. DRAINS: Two 10-mm flat Gui-Andrade drains, one to the pelvis and one to the wound. COMPLICATIONS: None. INDICATIONS AND FINDINGS: The patient is a 33-year-old male known to me from a recent previous hospitalization for diverticulitis. Patient was treated medically with intravenous antibiotics. With this treatment, he responded well and was able to be discharged home in stable condition on oral antibiotics. The patient was doing well until yesterday when he started having left lower quadrant pain and suprapubic pain similar to what brought him in the previous admission. A CT scan done this admission revealed the phlegmonous changes that were present on the previous admission still present with now involvement of the proximal small bowel with an inflammatory mass contiguous to the sigmoid colon. The CT scan also showed some thickening of the mesentery of the terminal ileum, no obvious obstruction. INTRAOPERATIVE FINDINGS: The patient had a perforated sigmoid diverticulitis with phlegmon formation. There was no abscess. There was a loop of small bowel of the proximal jejunum that was acutely inflamed with thickened mesentery and bowel wall that was stuck to the phlegmonous mass. Due to concerns about the possibility of stricture formation and fistulization, this area, which was about 10 to 12 inches, was resected. The rest of the small bowel and the abdominal exploration were unremarkable. There was some thickening of the terminal ileum proximal to the ileocecal valve which was palpable and had been seen on CT scan, but there was no mass or any evidence of obstruction. End colostomy was performed, and the anastomosis of the small bowel was made [id number] functional end-to-end with the staple. DESCRIPTION OF PROCEDURE: With the patient lying on the operative table in the supine position, after administration of general endotracheal anesthesia, he was prepped and draped for exploratory laparotomy, possible colostomy. A midline incision was then made and extended superiorly to the umbilicus and inferiorly to the suprapubic region. The dissection was then carried out through the skin and midline fascia until the abdominal cavity was entered. At this point, immediately came into view the inflammatory mass. It consisted of sigmoid colon and a loop of proximal small bowel. The small bowel was detached from the mass, and then we exposed the operative field with a Bookwalter retractor. We transected the sigmoid colon proximally and distally in an area that was soft and pliable proximally to the proximal sigmoid colon and distal left colon and distally to the distal sigmoid and upper rectum. For this, we used a MATEUS 75 stapler. Then the blood supply to the sigmoid colon was transected and cauterized with the Enseal cautery instrument except for the main supply to the sigmoid colon which was suture ligated. After we resected the phlegmonous mass and sent it to pathology, we then ran the small bowel. The distal ileum proximal to the small bowel contained thickened mesentery. There was no evidence of creeping fat. This was also seen on the CT scan, but there was no mass and no evidence of obstruction so this was left alone. We then ran the small bowel all the way up to the ligament of Treitz and found the loop of small bowel that had been stuck to the inflammatory mass, and about 10 to 12 inches of that area were resected for the reasons given above. The small bowel was transected between MATEUS 75 stapler also at a point where it was soft and pliable. At this point, we then transected the blood supply using the Enseal stapler and then performed a [id number]-[id number] functional end-to-end anastomosis using the MATEUS 75 stapler to anastomose the small bowel to itself. Then the rent in the small bowel was closed with a TA 60 stapler. The staple line was reinforced with 3-0 silk, and the rent in the mesentery was closed using 2-0 Vicryl. At this point then, we irrigated the abdominal cavity. Then we mobilized the distal sigmoid colon and left colon along the white line of Toldt to a point in the left upper quadrant where it was practical to make an anastomosis along the rectus sheath. We went ahead and made a cruciate incision in the rectus sheath and brought out the colon without any tension to the mid left side of the abdomen along the rectus sheath and left it there with a Jalen clamp. At this point, we continued irrigating the abdomen and the pelvis. There was no pus, no evidence of active bleeding. We then placed a 10-mm flat Gui-Andrade drain to drain the pelvis where the inflammatory mass was and then brought it out through a stab wound in the right lower quadrant and secured there with 2-0 silk. We then closed the wound after the sponge and instrument count was pronounced correct several times using #1 Vicryl for the peritoneum and posterior fascia and a #1 running PDS for the midline fascia. The subcutaneous tissues were closed using #0 chromic. A 10-mm flat Gui-Andrade to drain the wound was brought out through a stab wound through the suprapubic area along the midline and secured there with 2-0 silk also. Both drains were connected to self-suction. We then closed the skin with a combination of lorie and 2-0 silk sutures and then isolated the wound from the colostomy site. We matured the colostomy with 3-0 Vicryl. We placed first 4 quadrant stitches incorporating the mucosa, seromuscular and subcuticular plane of the wound, then completed the maturation but simply anastomosing the bowel mucosa to the subcuticular plane around the periphery of the colostomy. The colostomy was viable. Then we cut a colostomy appliance Ramiro to about 1-3/4 inches in diameter and then placed it in the colostomy. A sterile dressing was applied. The patient tolerated the procedure well and was taken to the recovery room in stable condition. Job#: [id number]
[2017-10-27] MEDS: SODIUM CHLORIDE 0.9% 250ML IRRIG IR SCH ×3 (18:25→23:56)
[2017-10-27] MEDS: LEVOFLOXACIN 750MG/D5W 150ML 150 ML IV SCH (18:25)
[2017-10-27] MEDS: HYDROMORPHONE 0.2MG/ML-SOD CHL 30ML PCA SYRINGE IV PRN (20:58)
[2017-10-27] MEDS: ACETAMINOPHEN 1000 MG/100 ML IV PRN (21:32)
[2017-10-28] VITALS (19 sets, daily range): BP systolic 124–176; BP diastolic 79–98
[2017-10-28] MEDS: SODIUM CHLORIDE 0.9% 1000ML 1,000 ML IV SCH ×3 (01:22→21:15)
[2017-10-28] MEDS: KETOROLAC TROMETHAMINE 30 MG/ML VIAL IV PRN ×2 (01:23→23:21)
[2017-10-28] MEDS: SODIUM CHLORIDE 0.9% 250ML IRRIG IR SCH ×6 (03:20→23:20)
[2017-10-28 04:59] LABS: BASOPHILS % 0.4 % (0.0-1.0); EOSINOPHILS # (AUTO) 0.1 (0.0-0.4); EOSINOPHILS % 1.4 % (0.0-6.0); HEMATOCRIT 33.1 % (38.2-49.6); HEMOGLOBIN 11.3 g/dL (14.0-18.0); LYMPHOCYTES # (AUTO) 1.8 (1.0-3.2); LYMPHOCYTES % 19.7 % (18.0-39.1); MEAN CORPUSCULAR HEMOGLOBIN 30.6 pg (28-32); MEAN CORPUSCULAR HGB CONC 34.1 g/dL (31-35); MEAN CORPUSCULAR VOLUME 89.7 fL (81-99); MONOCYTES # (AUTO) 0.7 (0.2-0.8); MONOCYTES % 7.8 % (4.4-11.3); NEUTROPHILS # (AUTO) 6.3 (2.1-6.9); NEUTROPHILS % 70.3 % (38.7-80.0); PLATELET COUNT 380 x10e3/uL (140-360); RED BLOOD COUNT 3.69 x10e6/uL (4.3-5.7); RED CELL DISTRIBUTION WIDTH 12.1 % (11.7-14.4)
[2017-10-28 05:18] LABS: ANION GAP 12.7 mmol/L (8-16); BLOOD UREA NITROGEN 7 mg/dL (7-26); BUN/CREATININE RATIO 8 (6-25); CALCIUM 8.6 mg/dL (8.4-10.2); CARBON DIOXIDE 25 mmol/L (22-29); CHLORIDE 102 mmol/L (98-107); CREATININE, SERUM 0.83 mg/dL (0.72-1.25); EST GLOMERULAR FILTRATION RATE > 60 ML/MIN (60-); GLUCOSE 99 mg/dL (74-118); POTASSIUM 3.7 mmol/L (3.5-5.1); SODIUM 136 mmol/L (136-145)
[2017-10-28] MEDS: METRONIDAZOLE 500MG/NS 100ML 100 ML IV SCH ×3 (06:04→22:57)
[2017-10-28] MEDS: ONDANSETRON HCL INJ 2 MG/ML VIAL IV PRN (06:04)
[2017-10-28] MEDS: HYDROMORPHONE 0.2MG/ML-SOD CHL 30ML PCA SYRINGE IV PRN ×2 (06:36→15:50)
[2017-10-28] MEDS: ACETAMINOPHEN 1000 MG/100 ML IV PRN (08:41)
[2017-10-28] MEDS: PROMETHAZINE 25MG/ NS 50ML (IV) IV PRN ×2 (11:09→19:30)
[2017-10-28] MEDS ORDERED: ONDANSETRON HCL INJ 2 MG/ML VIAL IV PRN (12:00)
[2017-10-28] MEDS: PANTOPRAZOLE 40 MG 10ML VIAL IV SCH (14:49)
[2017-10-28] MEDS: LEVOFLOXACIN 750MG/D5W 150ML 150 ML IV SCH (17:02)
[2017-10-29] VITALS (7 sets, daily range): BP systolic 128–156; BP diastolic 66–81
[2017-10-29] MEDS: PROMETHAZINE 25MG/ NS 50ML (IV) IV PRN ×4 (02:21→20:42)
[2017-10-29] MEDS: HYDROMORPHONE 0.2MG/ML-SOD CHL 30ML PCA SYRINGE IV PRN ×2 (02:34→16:00)
[2017-10-29] MEDS: SODIUM CHLORIDE 0.9% 250ML IRRIG IR SCH ×6 (03:15→23:15)
[2017-10-29 05:56] LABS: ANION GAP 14.5 mmol/L (8-16); BLOOD UREA NITROGEN 6 mg/dL (7-26); BUN/CREATININE RATIO 8 (6-25); CALCIUM 8.1 mg/dL (8.4-10.2); CARBON DIOXIDE 22 mmol/L (22-29); CHLORIDE 103 mmol/L (98-107); EST GLOMERULAR FILTRATION RATE > 60 ML/MIN (60-); GLUCOSE 75 mg/dL (74-118); POTASSIUM 3.5 mmol/L (3.5-5.1); SODIUM 136 mmol/L (136-145)
[2017-10-29] MEDS: METRONIDAZOLE 500MG/NS 100ML 100 ML IV SCH ×3 (06:29→22:00)
[2017-10-29] MEDS: SODIUM CHLORIDE 0.9% 1000ML 1,000 ML IV SCH ×3 (06:39→19:01)
[2017-10-29 06:51] LABS: BASOPHILS % 0.4 % (0.0-1.0); EOSINOPHILS # (AUTO) 0.3 (0.0-0.4); EOSINOPHILS % 3.1 % (0.0-6.0); HEMATOCRIT 28.2 % (38.2-49.6); HEMOGLOBIN 9.4 g/dL (14.0-18.0); LYMPHOCYTES # (AUTO) 1.7 (1.0-3.2); LYMPHOCYTES % 20.8 % (18.0-39.1); MEAN CORPUSCULAR HGB CONC 33.3 g/dL (31-35); MEAN CORPUSCULAR VOLUME 90.1 fL (81-99); MONOCYTES # (AUTO) 0.6 (0.2-0.8); MONOCYTES % 7.1 % (4.4-11.3); NEUTROPHILS # (AUTO) 5.6 (2.1-6.9); NEUTROPHILS % 67.8 % (38.7-80.0); PLATELET COUNT 334 x10e3/uL (140-360); RED BLOOD COUNT 3.13 x10e6/uL (4.3-5.7); RED CELL DISTRIBUTION WIDTH 12.1 % (11.7-14.4)
[2017-10-29] MEDS: KETOROLAC TROMETHAMINE 30 MG/ML VIAL IV PRN ×2 (14:25→20:41)
[2017-10-29] MEDS: PANTOPRAZOLE 40 MG 10ML VIAL IV SCH (14:25)
[2017-10-29] MEDS: LEVOFLOXACIN 750MG/D5W 150ML 150 ML IV SCH (18:00)
[2017-10-30] VITALS (7 sets, daily range): BP systolic 130–158; BP diastolic 75–86
[2017-10-30] MEDS: SODIUM CHLORIDE 0.9% 1000ML 1,000 ML IV SCH ×2 (05:09→11:01)
[2017-10-30] MEDS: METRONIDAZOLE 500MG/NS 100ML 100 ML IV SCH (05:31)
[2017-10-30 05:51] LABS: BASOPHILS % 0.4 % (0.0-1.0); EOSINOPHILS # (AUTO) 0.4 (0.0-0.4); HEMOGLOBIN 9.4 g/dL (14.0-18.0); LYMPHOCYTES # (AUTO) 1.6 (1.0-3.2); LYMPHOCYTES % 22.1 % (18.0-39.1); MEAN CORPUSCULAR HGB CONC 33.6 g/dL (31-35); MEAN CORPUSCULAR VOLUME 89.5 fL (81-99); MONOCYTES # (AUTO) 0.4 (0.2-0.8); MONOCYTES % 5.2 % (4.4-11.3); NEUTROPHILS # (AUTO) 4.7 (2.1-6.9); NEUTROPHILS % 65.6 % (38.7-80.0); PLATELET COUNT 354 x10e3/uL (140-360); RED BLOOD COUNT 3.13 x10e6/uL (4.3-5.7)
[2017-10-30 06:06] LABS: ANION GAP 15.5 mmol/L (8-16); BLOOD UREA NITROGEN 5 mg/dL (7-26); BUN/CREATININE RATIO 7 (6-25); CALCIUM 8.3 mg/dL (8.4-10.2); CARBON DIOXIDE 21 mmol/L (22-29); CHLORIDE 101 mmol/L (98-107); CREATININE, SERUM 0.74 mg/dL (0.72-1.25); EST GLOMERULAR FILTRATION RATE > 60 ML/MIN (60-); GLUCOSE 77 mg/dL (74-118); POTASSIUM 3.5 mmol/L (3.5-5.1); SODIUM 134 mmol/L (136-145)
[2017-10-30] MEDS: KETOROLAC TROMETHAMINE 30 MG/ML VIAL IV PRN ×2 (07:01→12:50)
[2017-10-30] MEDS ORDERED: POTASSIUM CHLORIDE IV SCH (11:31)
[2017-10-30] MEDS ORDERED: SODIUM CHLORIDE 0.9% IV SCH (11:31)
[2017-10-30] MEDS: HYDROMORPHONE 0.2MG/ML-SOD CHL 30ML PCA SYRINGE IV PRN (11:53)
[2017-10-30] MEDS: ONDANSETRON HCL INJ 2 MG/ML VIAL IV PRN (11:53)
[2017-10-30] MEDS: PIPER-TAZ 3.375 GM 50 ML IV SCH ×3 (12:37→23:19)
[2017-10-30] MEDS: PANTOPRAZOLE 40 MG 10ML VIAL IV SCH (13:17)
[2017-10-30] MEDS: KCL 20MEQ/.9 SOD CHL 1,000 ML IV SCH (14:28)
[2017-10-30] MEDS: PROMETHAZINE 25MG/ NS 50ML (IV) IV PRN (22:11)
[2017-10-31] VITALS (7 sets, daily range): BP systolic 125–156; BP diastolic 67–81
[2017-10-31] MEDS: KCL 20MEQ/.9 SOD CHL 1,000 ML IV SCH ×4 (01:11→19:45)
[2017-10-31] MEDS: PIPER-TAZ 3.375 GM 50 ML IV SCH ×3 (05:22→17:48)
[2017-10-31] MEDS: HYDROMORPHONE 0.2MG/ML-SOD CHL 30ML PCA SYRINGE IV PRN (09:15)
[2017-10-31] MEDS ORDERED: CHLORASEPTIC SPRAY 177 ML BTL MM PRN (12:15)
[2017-10-31] MEDS: PANTOPRAZOLE 40 MG 10ML VIAL IV SCH (15:20)
[2017-10-31] MEDS: ONDANSETRON HCL INJ 2 MG/ML VIAL IV PRN (16:23)
[2017-10-31] MEDS: HYDROCODONE/APAP 7.5MG-325MG 1 EA TAB PO PRN (18:18)
[2017-10-31] MEDS: CEPACOL SORE THROAT LOZENGES PO PRN (18:18)
[2017-10-31] MEDS: PROMETHAZINE 25MG/ NS 50ML (IV) IV PRN (21:48)
[2017-11-01] VITALS (7 sets, daily range): BP systolic 126–147; BP diastolic 71–86
[2017-11-01] MEDS: PIPER-TAZ 3.375 GM 50 ML IV SCH ×4 (00:45→18:20)
[2017-11-01] MEDS: HYDROMORPHONE 0.2MG/ML-SOD CHL 30ML PCA SYRINGE IV PRN ×2 (03:36→21:30)
[2017-11-01] MEDS: KCL 20MEQ/.9 SOD CHL 1,000 ML IV SCH ×2 (03:45→19:45)
[2017-11-01 05:35] LABS: BASOPHILS % 0.4 % (0.0-1.0); EOSINOPHILS # (AUTO) 0.5 (0.0-0.4); EOSINOPHILS % 6.2 % (0.0-6.0); HEMATOCRIT 27.9 % (38.2-49.6); HEMOGLOBIN 9.5 g/dL (14.0-18.0); LYMPHOCYTES # (AUTO) 1.9 (1.0-3.2); LYMPHOCYTES % 23.3 % (18.0-39.1); MEAN CORPUSCULAR HEMOGLOBIN 29.9 pg (28-32); MEAN CORPUSCULAR HGB CONC 34.1 g/dL (31-35); MEAN CORPUSCULAR VOLUME 87.7 fL (81-99); MONOCYTES # (AUTO) 0.5 (0.2-0.8); MONOCYTES % 5.7 % (4.4-11.3); NEUTROPHILS # (AUTO) 5.2 (2.1-6.9); NEUTROPHILS % 63.9 % (38.7-80.0); PLATELET COUNT 375 x10e3/uL (140-360); RED BLOOD COUNT 3.18 x10e6/uL (4.3-5.7); RED CELL DISTRIBUTION WIDTH 11.9 % (11.7-14.4)
[2017-11-01 06:05] LABS: ALANINE AMINOTRANSFERASE 10 IU/L (0-55); ALBUMIN 2.7 g/dL (3.5-5.0); ALBUMIN/GLOBULIN RATIO 0.7 (0.8-2.0); ALKALINE PHOSPHATASE 57 IU/L (40-150); ANION GAP 13.8 mmol/L (8-16); BLOOD UREA NITROGEN 5 mg/dL (7-26); BUN/CREATININE RATIO 7 (6-25); CALCIUM 8.9 mg/dL (8.4-10.2); CARBON DIOXIDE 25 mmol/L (22-29); CHLORIDE 103 mmol/L (98-107); CREATININE, SERUM 0.74 mg/dL (0.72-1.25); EST GLOMERULAR FILTRATION RATE > 60 ML/MIN (60-); GLUCOSE 94 mg/dL (74-118); POTASSIUM 3.8 mmol/L (3.5-5.1); SODIUM 138 mmol/L (136-145)
[2017-11-01] MEDS: ONDANSETRON HCL INJ 2 MG/ML VIAL IV PRN (13:39)
[2017-11-01] MEDS: PANTOPRAZOLE 40 MG 10ML VIAL IV SCH (18:20)
[2017-11-01] MEDS: PROMETHAZINE 25MG/ NS 50ML (IV) IV PRN (21:00)
[2017-11-02] VITALS (7 sets, daily range): BP systolic 123–147; BP diastolic 68–79
[2017-11-02] MEDS: PIPER-TAZ 3.375 GM 50 ML IV SCH ×4 (00:10→18:00)
[2017-11-02] MEDS: KCL 20MEQ/.9 SOD CHL 1,000 ML IV SCH ×2 (03:45→11:45)
[2017-11-02] MEDS ORDERED: DIPHENOXYLATE/ATROPINE TAB PO ONE (09:45)
[2017-11-02] MEDS: HYDROCODONE/APAP 7.5MG-325MG 1 EA TAB PO PRN ×2 (13:17→18:54)
[2017-11-02] MEDS: ONDANSETRON HCL INJ 2 MG/ML VIAL IV PRN (18:07)
[2017-11-02] MEDS: LACTOBACILLUS ACIDOPHILUS CAPSULE PO SCH (18:10)
[2017-11-02] MEDS: CEPACOL SORE THROAT LOZENGES PO PRN (18:10)
[2017-11-02] MEDS: PANTOPRAZOLE 40 MG 10ML VIAL IV SCH (18:10)
[2017-11-02] MEDS: METRONIDAZOLE 500MG/NS 100ML 100 ML IV SCH (20:44)
[2017-11-02] MEDS: HYDROMORPHONE 1MG/1ML INJ IV PRN (21:42)
[2017-11-02] MEDS: PROMETHAZINE 25MG/ NS 50ML (IV) IV PRN (21:42)
[2017-11-03] VITALS (8 sets, daily range): BP systolic 116–136; BP diastolic 58–73
[2017-11-03] MEDS: PIPER-TAZ 3.375 GM 50 ML IV SCH ×5 (00:43→23:35)
[2017-11-03] MEDS: METRONIDAZOLE 500MG/NS 100ML 100 ML IV SCH ×3 (04:04→20:00)
[2017-11-03] MEDS: HYDROMORPHONE 1MG/1ML INJ IV PRN ×4 (05:19→22:09)
[2017-11-03] MEDS ORDERED: DIPHENOXYLATE/ATROPINE TAB PO ONE (09:00)
[2017-11-03] MEDS: LACTOBACILLUS ACIDOPHILUS CAPSULE PO SCH ×2 (09:41→17:19)
[2017-11-03] MEDS: HYDROCODONE/APAP 7.5MG-325MG 1 EA TAB PO PRN ×3 (12:26→21:57)
[2017-11-03] MEDS: KCL 20MEQ/.9 SOD CHL 1,000 ML IV SCH (15:36)
[2017-11-03] MEDS: PANTOPRAZOLE 40 MG 10ML VIAL IV SCH (15:36)
[2017-11-03] MEDS: ONDANSETRON HCL INJ 2 MG/ML VIAL IV PRN (20:00)
[2017-11-04] VITALS: BP 115/58
[2017-11-04] MEDS: HYDROCODONE/APAP 7.5MG-325MG 1 EA TAB PO PRN ×3 (02:49→11:12)
[2017-11-04] MEDS: METRONIDAZOLE 500MG/NS 100ML 100 ML IV SCH ×2 (04:00→11:14)
[2017-11-04 05:00] VITALS: BP 120/67
[2017-11-04] MEDS: PIPER-TAZ 3.375 GM 50 ML IV SCH ×2 (06:00→11:14)
[2017-11-04 08:00] VITALS: BP 116/55
[2017-11-04] MEDS: LACTOBACILLUS ACIDOPHILUS CAPSULE PO SCH (08:04)
[2017-11-04] MEDS ORDERED: ZOFRAN ODT4 MG (11:55)
[2017-11-04] MEDS ORDERED: NORCO 7.5-3251 EACH PO (11:57)
[2017-11-04] MEDS: ONDANSETRON HCL INJ 2 MG/ML VIAL IV PRN (13:01)
[2017-11-04 14:21] VITALS: BP 135/76
--- NOTE | 2017-11-04 15:07 | Discharge Summary ---
PRIMARY CARE DOCTOR: John Paul Alvarado MD FINAL DIAGNOSIS: Perforated diverticulitis. SECONDARY DIAGNOSES 1. Possible inflammatory bowel disease. 2. Hypertension, stable. 3. Obesity. CONSULTANTS 1. Dr. Arsalan Ivan, surgeon. 2. Dr. Nathan Reece, GI. PROCEDURES/STUDIES PERFORMED 1. CT of the abdomen and pelvis. 2. Bowel resection with colostomy. HISTORY: Per [facility] and [facility]. HOSPITAL COURSE: The patient underwent a course of IV antibiotics. Today is postop day #8 for bowel resection and colostomy. The patient did well, currently tolerating p.o. There is no evidence of inflammatory bowel disease on the resected colon. However, his serology is compatible with inflammatory bowel disease. I have discussed this with Dr. Reece. Down the line, the patient will need another colonoscopy for ileal biopsy. Hopefully, in about 2 months, the patient can have a takedown of the colostomy by Dr. Ivan. The patient was seen and examined today. It took 32 minutes total to discharge this patient. CONDITION ON DISCHARGE: Stable. DISCHARGE MEDICATIONS: Please see medication reconciliation form. KRISTOPHER BANDA M.D. Job#: [id number] cc:JOHN PAUL ALVARADO MD
== END 2017-11-04 14:27 | disposition home or self-care (01) | DRG 330 ==
LOC: ER 14:34 → MED/SURG2 19:01 → ICU 10-27 16:07 → MED/SURG 10-28 14:03
PROVIDERS: ADMIT Internal Medicine; ATTEND Internal Medicine
PROC: 0DBA0ZZ Excision of Jejunum, Open Approach (ICD-10-PCS; 2017-10-27)
PROC: 0DBN0ZZ Excision of Sigmoid Colon, Open Approach (ICD-10-PCS; principal; 2017-10-27 10:00)
PROC: 0D1N0Z4 Bypass Sigmoid Colon to Cutaneous, Open Approach (ICD-10-PCS; 2017-10-27 10:00)
DX: K57.20 Diverticulitis of large intestine with perforation and abscess without bleeding (principal); K50.90 Crohn's disease, unspecified, without complications; I10 Essential (primary) hypertension; E66.9 Obesity, unspecified; Z68.35 Body mass index [BMI] 35.0-35.9, adult; G47.33 Obstructive sleep apnea (adult) (pediatric)
CPT/HCPCS: 36415; 74177; 80048; 80053; 81001; 83690; 85025; 86256; 86671; 87086; 88307; 96361; 96367; 96374; 96376; 99284; J0696; J1100; J1170; J1885; J2250; J2270; J2405; J2543; J2550; J7030; Q9967

== ENCOUNTER → 2018-01-08 | Outpatient (CLI) | payer BC ==
[~2018-01-08] MED LIST changes: +HYDROCODON-ACE1 EA15 PO; +NORCO 7.5-3251 EACH PO; +ZOFRAN ODT4 MG
--- NOTE | 2018-01-08 16:12 | Diagnostic Imaging Report ---
PROCEDURE:X-RAY BARIUM ENEMA COMPARISON:Small bowel follow through 03/25/[address] Abdomen/Pelvis 10/26/17. INDICATIONS:DIVERTICULITIS TECHNIQUE:A single contrast barium enema examination was performed through the rectum and through the left lower quadrant ostomy. Pre and post barium driver guard abdominal radiographs were obtained. FINDINGS: Barium administration through the rectum demonstrated a blind ending rectal pouch without evidence of leak or stricture. Barium administration through the ostomy demonstrates opacification of the mid and proximal descending, transverse, ascending colon, and distal small bowel. There has been prior partial colonic resection. No leak is present. There are mild diverticula in the mid descending colon extending for a length of approximately 10 cm. CONCLUSION: Rectal pouch and colonic opacification with single contrast barium enema without evidence of stricture or leak. Mild diverticula in the mid descending colon. Dictated by: KIMBERLY MELVIN M.D. on 01/08/2018 at 16:21 Electronically approved by: KIMBERLY MELVIN M.D. on 01/08/2018 at 16:21
== END ==
LOC: DX 08:18
PROVIDERS: ATTEND Surgery
DX: K57.92 Diverticulitis of intestine, part unspecified, without perforation or abscess without bleeding (principal)
CPT/HCPCS: 74270

== ENCOUNTER 2018-02-05 05:32 | Inpatient (IN) | payer BC ==
[2018-01-31 09:44] LABS: BASOPHILS # (AUTO) 0.1 (0.0-0.1); BASOPHILS % 0.6 % (0.0-1.0); EOSINOPHILS # (AUTO) 0.2 (0.0-0.4); EOSINOPHILS % 2.6 % (0.0-6.0); HEMATOCRIT 43.2 % (38.2-49.6); LYMPHOCYTES # (AUTO) 2.5 (1.0-3.2); LYMPHOCYTES % 29.1 % (18.0-39.1); MEAN CORPUSCULAR VOLUME 85.2 fL (81-99); MONOCYTES # (AUTO) 0.5 (0.2-0.8); MONOCYTES % 5.4 % (4.4-11.3); NEUTROPHILS # (AUTO) 5.3 (2.1-6.9); NEUTROPHILS % 61.9 % (38.7-80.0); PLATELET COUNT 417 x10e3/uL (140-360); RED BLOOD COUNT 5.07 x10e6/uL (4.3-5.7); RED CELL DISTRIBUTION WIDTH 12.2 % (11.7-14.4)
[2018-01-31 09:49] LABS: BILIRUBIN,URINE NEGATIVE (NEGATIVE); CLARITY,URINE CLEAR (CLEAR); COLOR,URINE YELLOW (YELLOW); KETONES,URINE NEGATIVE (NEGATIVE); LEUKOCYTE ESTERASE ,URINE NEGATIVE (NEGATIVE); NITRITE,URINE NEGATIVE (NEGATIVE); PROTEIN,URINE DIPSTICK NEGATIVE (NEGATIVE); URINE UROBILINOGEN 0.2 mg/dL (0.2 - 1)
[2018-01-31 09:50] LABS: HEMOGLOBIN 14.7 g/dL (14.0-18.0)
[2018-01-31 10:01] LABS: ANION GAP 13.9 mmol/L (8-16); BLOOD UREA NITROGEN 10 mg/dL (7-26); BUN/CREATININE RATIO 11 (6-25); CALCIUM 9.8 mg/dL (8.4-10.2); CARBON DIOXIDE 27 mmol/L (22-29); CHLORIDE 98 mmol/L (98-107); CREATININE, SERUM 0.87 mg/dL (0.72-1.25); EST GLOMERULAR FILTRATION RATE > 60 ML/MIN (60-); GLUCOSE 99 mg/dL (74-118); POTASSIUM 3.9 mmol/L (3.5-5.1); SODIUM 135 mmol/L (136-145)
[~2018-02-05] VITALS: Ht 172.7 cm; Wt 116.6 kg
[~2018-02-05 05:32] MED LIST changes: -HYDROCODON-ACE1 EA15 PO
[2018-02-05] MEDS ORDERED: MINERAL OIL STERILE 10ML VIAL ONE (07:10)
[2018-02-05] MEDS ORDERED: BACITRACIN ZINC 15 GM OINT ONE (12:17)
[2018-02-05] MEDS ORDERED: NALOXONE HCL INJ 0.4 MG/ML AMP IV PRN (12:30)
[2018-02-05] MEDS ORDERED: DIPHENHYDRAMINE HCL 25 MG CAP PO PRN (12:30)
[2018-02-05] MEDS ORDERED: METOCLOPRAMIDE HCL 10 MG/2ML VIAL IV PRN (12:30)
[2018-02-05] MEDS ORDERED: ONDANSETRON HCL INJ 2 MG/ML VIAL IV PRN (12:30)
[2018-02-05] MEDS ORDERED: DIPHENHYDRAMINE HCL INJ 50 MG/ML VIAL IM PRN (12:30)
[2018-02-05] MEDS ORDERED: ACETAMINOPHEN 1000 MG/100 ML IV PRN (12:30)
[2018-02-05] MEDS ORDERED: HYDROMORPHONE 0.2MG/ML-SOD CHL 30ML PCA SYRINGE IV ONE (12:43)
[2018-02-05] MEDS ORDERED: FENTANYL CITRATE/PF 100MCG/2 ML INJ ONE ×2 (13:18→18:14)
[2018-02-05 14:11] VITALS: BP 115/71
[2018-02-05] MEDS: SODIUM CHLORIDE 0.9% 250ML IRRIG IR SCH ×3 (14:43→21:30)
[2018-02-05] MEDS: PANTOPRAZOLE 40 MG 10ML VIAL IV SCH (14:43)
[2018-02-05] MEDS: SODIUM CHLORIDE 0.9% 1000ML 1,000 ML IV SCH ×2 (14:43→22:55)
--- NOTE | 2018-02-05 15:12 | Operative Report ---
DATE OF PROCEDURE: February 05, 2018 PREOPERATIVE DIAGNOSIS: Status post Steven procedure for perforated complicated sigmoid diverticulitis. POSTOPERATIVE DIAGNOSIS: Status post Steven procedure for perforated complicated sigmoid diverticulitis. PROCEDURES PERFORMED 1. Rigid proctosigmoidoscopy. 2. Colostomy takedown. 3. Exploratory laparotomy. 4. Lysis of adhesions. 5. Low anterior resection with hand-sewn end-to-end anastomosis. CLUB MANAGER: Jamarcus Ivan MD SECOND CREDENTIALER: DOROTHEA Espinal ESTIMATED BLOOD LOSS: 200 mL. DRAINS: One 0.25-inch Sergio to the wound and two 0.25-inch Sergio to the colostomy site. COMPLICATIONS: None. INDICATIONS AND FINDINGS: The patient is a pleasant 33-year-old male who on October 27, 2017, underwent the previously described procedure for perforated diverticulitis. In addition, at that time also had a small bowel resection because of the phlegmonous mass that involved the small bowel. The patient now is admitted for closure. Preoperatively, he had a barium enema that revealed no residual diverticulitis in the rectosigmoid stump, and a few diverticula in the area of the colostomy. Although diverticula were excised with the colostomy takedown. There were multiple adhesions. A rigid proctosigmoidoscopy preoperatively performed up to about 15 to 16 cm revealed no lesions. There was a small amount of residual barium from the barium enema that was removed. DESCRIPTION OF PROCEDURE: With the patient lying on the operative table in the supine position and after administration of general anesthesia, he was placed in the lithotomy position and then the rigid proctosigmoidoscopy was performed with findings noted above. After we did that, we prepped and draped him for exploratory laparotomy. The patient was given preoperatively 2 g of Mefoxin. The procedure was begun by draping the colostomy separately from the main wound, which had Ioban drape. We then began by taking down the colostomy after making a transverse elliptical incision. After we took down the colostomy and were able to deliver to the abdominal cavity, we then opened the abdomen and isolated the colostomy site and place a Betadine sponge there. After we did that, we entered the abdomen through the midline incision through an area that was free of any adhesions. We then lysed adhesions of the small bowel. Ran the small bowel in its entirety. The anastomosis previously made was patent. There were no gross obvious abnormalities. At this point, we then went ahead and mobilized the colostomy and the left colon along the white line of Toldt. Then after that, paid attention to the stump. The stump was mobilized. Then a bowel clamp was placed in it. The previously placed staple line was removed. We then prepared the stump, which was at the level of the upper rectum junction and on junction with the sigmoid colon for anastomosis. We prepared the proximal left colon and placed Allis clamps, and also prepared the proximal left colon for anastomosis. We removed the staple line in the left colon that had been placed using the TA-60 stapler. There was excellent bowel prep. We then performed a hand-sewn anastomosis in 2 layers using 3-0 chromic for the mucosa that was run posteriorly in a locking fashion and anteriorly in a Natoma fashion. Then we placed Lembert sutures anteriorly with 3-0 silk. It is to be mentioned that before we did the mucosal anastomosis, we placed also 3-0 silk Lembert sutures seromuscular sutures on the posterior layer for the 2 layer anastomosis. The anastomosis was very viable. It was widely patent. Then after we did that, we went ahead and irrigated the abdominal cavity profusely. We went ahead and had a sponge and instrument counts pronounced correct. Then we closed the colostomy site within with 1 Vicryl. Then we proceeded to close the abdominal wound in 2 layers with 1 Vicryl for the posterior sheath and peritoneum, and a running 1 Prolene for the anterior fascia. Irrigated the wound at each step. Then we placed 2-0 plain catgut for the subcutaneous tissues. We closed the skin with a combination of 2-0 silk and lorie. We placed a 0.25-inch Gui-Andrade drain to drain the incision and brought it out through a stab wound inferior to the midline and secured there with 2-0 silk also. We then isolated the abdominal incision and then paid attention to the colostomy site that had been isolated from the main incision. We then a closed the anterior fascia with interrupted 1 Prolene also. The subcutaneous tissue were closed using 2-0 Vicryl. The skin was closed using 2-0 ilk. We placed two 0.25-inch [place] drains to drain the stoma site, and brought it out laterally and secured them with 2-0 silk. Sterile dressing was applied. The patient tolerated the procedure well and taken to the recovery room in stable condition. DIXIE IVAN MD Job#: [id number] [place]
[2018-02-05 16:00] VITALS: BP 105/67
[2018-02-05] MEDS: NITROGLYCERIN 2% OINT 1 GM PKT TOP SCH ×2 (17:23→23:50)
[2018-02-05] MEDS: CEFOXITIN SOD 1 GM VIAL IV SCH ×2 (17:23→23:50)
[2018-02-05 17:25] VITALS: BP 105/67
[2018-02-05] MEDS ORDERED: CEFOXITIN 1GM/ NS 50ML 50 ML IV SCH (18:00)
[2018-02-05] MEDS ORDERED: EPHEDRINE SULFATE INJ 50 MG/10 ML SYR ONE (18:03)
[2018-02-05] MEDS ORDERED: DEXAMETHASONE SOD PHOS INJ 4 MG/ML VIAL ONE (18:03)
[2018-02-05] MEDS ORDERED: CEFOXITIN SOD 1 GM VIAL ONE (18:03)
[2018-02-05] MEDS ORDERED: ONDANSETRON HCL INJ 2 MG/ML VIAL ONE (18:03)
[2018-02-05] MEDS ORDERED: SUCCINYLCHOLINE 200 MG/10 ML SYR ONE (18:03)
[2018-02-05] MEDS ORDERED: SEVOFLURANE INHAL SOLN 250 ML PEN BTL ONE (18:03)
[2018-02-05] MEDS ORDERED: ACETAMINOPHEN 1000 MG/100 ML IV ONE (18:03)
[2018-02-05] MEDS ORDERED: LIDOCAINE HCL 2% LOCAL INJ 5 ML SDV VIAL INJ ONE (18:03)
[2018-02-05] MEDS ORDERED: ROCURONIUM BROMIDE 10 MG/ML 5ML VIAL ONE (18:03)
[2018-02-05] MEDS ORDERED: PROPOFOL IV EMULSION 10 MG/ML 20 ML VIAL ONE (18:03)
[2018-02-05] MEDS ORDERED: KETAMINE HCL INJ 50 MG/ML 10 ML VIAL ONE (18:14)
[2018-02-05] MEDS ORDERED: MIDAZOLAM HCL 2 MG/2 ML VIAL ONE (18:14)
[2018-02-05 19:40] VITALS: BP 113/58
--- NOTE | 2018-02-05 20:43 | Diagnostic Imaging Report ---
EXAM: Abdomen 1 View INDICATION: ^VERIFY NGT PLACEMENT ^[id number] ^1999 COMPARISON: None IMPRESSION: Dedicated x-ray to confirm nasogastric tube placement. Tip of the nasogastric tube is visualized, overlying gastric cardia. The side-port is probably above the gastroesophageal junction. Recommend advancement. Nonobstructive bowel gas pattern. Midline lower abdomen skin lorie. Signed by: Dr. Madhu Phelps MD on 02/05/2018 8:40 PM
[2018-02-05] MEDS: HYDROMORPHONE 0.2MG/ML-SOD CHL 30ML PCA SYRINGE IV PRN (22:42)
[2018-02-05] MEDS: KETOROLAC TROMETHAMINE 30 MG/ML VIAL IV PRN (22:55)
[2018-02-05 23:49] VITALS: BP 111/55
[2018-02-06] VITALS (8 sets, daily range): BP systolic 110–136; BP diastolic 58–74
[2018-02-06] MEDS: SODIUM CHLORIDE 0.9% 250ML IRRIG IR SCH ×6 (01:21→20:30)
[2018-02-06] MEDS: SODIUM CHLORIDE 0.9% 1000ML 1,000 ML IV SCH ×4 (04:25→23:00)
[2018-02-06] MEDS: NITROGLYCERIN 2% OINT 1 GM PKT TOP SCH ×4 (05:49→23:48)
[2018-02-06] MEDS: CEFOXITIN SOD 1 GM VIAL IV SCH ×4 (05:49→23:48)
[2018-02-06] MEDS: KETOROLAC TROMETHAMINE 30 MG/ML VIAL IV PRN ×3 (05:55→18:16)
[2018-02-06 05:57] LABS: BASOPHILS % 0.2 % (0.0-1.0); EOSINOPHILS % 0.2 % (0.0-6.0); HEMATOCRIT 38.5 % (38.2-49.6); HEMOGLOBIN 13.1 g/dL (14.0-18.0); LYMPHOCYTES # (AUTO) 1.7 (1.0-3.2); LYMPHOCYTES % 14.4 % (18.0-39.1); MEAN CORPUSCULAR VOLUME 85.2 fL (81-99); MONOCYTES # (AUTO) 0.9 (0.2-0.8); NEUTROPHILS # (AUTO) 8.8 (2.1-6.9); NEUTROPHILS % 76.8 % (38.7-80.0); PLATELET COUNT 421 x10e3/uL (140-360); RED BLOOD COUNT 4.52 x10e6/uL (4.3-5.7); RED CELL DISTRIBUTION WIDTH 12.2 % (11.7-14.4)
[2018-02-06 06:18] LABS: ANION GAP 11.9 mmol/L (8-16); BLOOD UREA NITROGEN 11 mg/dL (7-26); BUN/CREATININE RATIO 12 (6-25); CALCIUM 8.9 mg/dL (8.4-10.2); CARBON DIOXIDE 25 mmol/L (22-29); CHLORIDE 101 mmol/L (98-107); EST GLOMERULAR FILTRATION RATE > 60 ML/MIN (60-); GLUCOSE 112 mg/dL (74-118); POTASSIUM 3.9 mmol/L (3.5-5.1); SODIUM 134 mmol/L (136-145)
[2018-02-06] MEDS: CEPACOL SORE THROAT LOZENGES PO PRN ×2 (11:25→18:16)
[2018-02-06] MEDS: PANTOPRAZOLE 40 MG 10ML VIAL IV SCH (12:10)
[2018-02-06] MEDS: HYDROMORPHONE 0.2MG/ML-SOD CHL 30ML PCA SYRINGE IV PRN (16:28)
[2018-02-07] VITALS (7 sets, daily range): BP systolic 122–143; BP diastolic 61–86
[2018-02-07] MEDS: KETOROLAC TROMETHAMINE 30 MG/ML VIAL IV PRN ×4 (00:15→19:48)
[2018-02-07] MEDS: SODIUM CHLORIDE 0.9% 250ML IRRIG IR SCH ×3 (00:15→08:30)
[2018-02-07] MEDS: CEFOXITIN SOD 1 GM VIAL IV SCH ×4 (05:25→23:50)
[2018-02-07] MEDS: NITROGLYCERIN 2% OINT 1 GM PKT TOP SCH ×3 (05:26→18:03)
[2018-02-07 05:58] LABS: BASOPHILS % 0.4 % (0.0-1.0); EOSINOPHILS # (AUTO) 0.3 (0.0-0.4); EOSINOPHILS % 3.2 % (0.0-6.0); HEMATOCRIT 34.9 % (38.2-49.6); HEMOGLOBIN 11.5 g/dL (14.0-18.0); LYMPHOCYTES # (AUTO) 1.8 (1.0-3.2); LYMPHOCYTES % 20.1 % (18.0-39.1); MEAN CORPUSCULAR HEMOGLOBIN 28.6 pg (28-32); MEAN CORPUSCULAR VOLUME 86.8 fL (81-99); MONOCYTES # (AUTO) 0.7 (0.2-0.8); MONOCYTES % 7.7 % (4.4-11.3); NEUTROPHILS # (AUTO) 6.1 (2.1-6.9); NEUTROPHILS % 68.3 % (38.7-80.0); PLATELET COUNT 326 x10e3/uL (140-360); RED BLOOD COUNT 4.02 x10e6/uL (4.3-5.7); RED CELL DISTRIBUTION WIDTH 12.4 % (11.7-14.4)
[2018-02-07 06:10] LABS: ANION GAP 10.6 mmol/L (8-16); BLOOD UREA NITROGEN 11 mg/dL (7-26); BUN/CREATININE RATIO 12 (6-25); CALCIUM 8.7 mg/dL (8.4-10.2); CARBON DIOXIDE 24 mmol/L (22-29); CHLORIDE 102 mmol/L (98-107); CREATININE, SERUM 0.93 mg/dL (0.72-1.25); EST GLOMERULAR FILTRATION RATE > 60 ML/MIN (60-); GLUCOSE 88 mg/dL (74-118); POTASSIUM 3.6 mmol/L (3.5-5.1); SODIUM 133 mmol/L (136-145)
[2018-02-07] MEDS: SODIUM CHLORIDE 0.9% 1000ML 1,000 ML IV SCH ×3 (06:20→21:55)
[2018-02-07] MEDS: METOCLOPRAMIDE HCL 10 MG/2ML VIAL IV SCH ×3 (11:49→23:50)
[2018-02-07] MEDS: PANTOPRAZOLE 40 MG 10ML VIAL IV SCH (11:49)
[2018-02-07] MEDS: HYDROMORPHONE 0.2MG/ML-SOD CHL 30ML PCA SYRINGE IV PRN ×2 (12:30→23:50)
[2018-02-08] VITALS (8 sets, daily range): BP systolic 113–144; BP diastolic 59–84
[2018-02-08] MEDS: KETOROLAC TROMETHAMINE 30 MG/ML VIAL IV PRN ×4 (01:34→19:30)
[2018-02-08] MEDS: METOCLOPRAMIDE HCL 10 MG/2ML VIAL IV SCH ×4 (05:30→23:53)
[2018-02-08] MEDS: NITROGLYCERIN 2% OINT 1 GM PKT TOP SCH ×5 (05:50→23:53)
[2018-02-08] MEDS: SODIUM CHLORIDE 0.9% 1000ML 1,000 ML IV SCH ×3 (05:50→21:00)
[2018-02-08] MEDS: CEFOXITIN SOD 1 GM VIAL IV SCH ×4 (05:50→23:53)
[2018-02-08 05:55] LABS: BASOPHILS % 0.4 % (0.0-1.0); EOSINOPHILS # (AUTO) 0.4 (0.0-0.4); EOSINOPHILS % 4.6 % (0.0-6.0); HEMATOCRIT 31.9 % (38.2-49.6); HEMOGLOBIN 10.8 g/dL (14.0-18.0); LYMPHOCYTES # (AUTO) 1.7 (1.0-3.2); LYMPHOCYTES % 21.4 % (18.0-39.1); MEAN CORPUSCULAR HGB CONC 33.9 g/dL (31-35); MEAN CORPUSCULAR VOLUME 85.5 fL (81-99); MONOCYTES # (AUTO) 0.6 (0.2-0.8); MONOCYTES % 7.8 % (4.4-11.3); NEUTROPHILS # (AUTO) 5.3 (2.1-6.9); NEUTROPHILS % 65.4 % (38.7-80.0); PLATELET COUNT 300 x10e3/uL (140-360); RED BLOOD COUNT 3.73 x10e6/uL (4.3-5.7)
[2018-02-08 06:18] LABS: ANION GAP 12.7 mmol/L (8-16); BLOOD UREA NITROGEN 10 mg/dL (7-26); BUN/CREATININE RATIO 13 (6-25); CALCIUM 8.6 mg/dL (8.4-10.2); CARBON DIOXIDE 22 mmol/L (22-29); CHLORIDE 105 mmol/L (98-107); CREATININE, SERUM 0.76 mg/dL (0.72-1.25); EST GLOMERULAR FILTRATION RATE > 60 ML/MIN (60-); GLUCOSE 80 mg/dL (74-118); POTASSIUM 3.7 mmol/L (3.5-5.1); SODIUM 136 mmol/L (136-145)
[2018-02-08] MEDS ORDERED: BISACODYL 10 MG SUPP PR NR (10:30)
[2018-02-08] MEDS: BISACODYL 10 MG SUPP PR NR ×2 (11:54→21:49)
[2018-02-08] MEDS: HYDROMORPHONE 0.2MG/ML-SOD CHL 30ML PCA SYRINGE IV PRN (12:23)
[2018-02-08] MEDS: PANTOPRAZOLE 40 MG 10ML VIAL IV SCH (13:07)
[2018-02-09] VITALS (7 sets, daily range): BP systolic 121–139; BP diastolic 67–79
[2018-02-09] MEDS: KETOROLAC TROMETHAMINE 30 MG/ML VIAL IV PRN ×2 (02:10→17:38)
[2018-02-09] MEDS: HYDROMORPHONE 0.2MG/ML-SOD CHL 30ML PCA SYRINGE IV PRN (02:14)
[2018-02-09] MEDS: SODIUM CHLORIDE 0.9% 1000ML 1,000 ML IV SCH ×2 (05:26→19:38)
[2018-02-09] MEDS: CEFOXITIN SOD 1 GM VIAL IV SCH ×4 (05:51→23:54)
[2018-02-09] MEDS: NITROGLYCERIN 2% OINT 1 GM PKT TOP SCH ×3 (05:51→18:25)
[2018-02-09] MEDS: METOCLOPRAMIDE HCL 10 MG/2ML VIAL IV SCH ×4 (05:51→23:54)
[2018-02-09] MEDS ORDERED: HYDROMORPHONE 1MG/1ML INJ IV PRN (07:45)
[2018-02-09] MEDS: PANTOPRAZOLE 40 MG 10ML VIAL IV SCH (13:36)
[2018-02-09] MEDS: HYDROMORPHONE 2MG/ML 2 MG/ML ML IV PRN ×3 (15:02→23:54)
[2018-02-10] VITALS (7 sets, daily range): BP systolic 135–145; BP diastolic 63–89
[2018-02-10] MEDS: NITROGLYCERIN 2% OINT 1 GM PKT TOP SCH ×3 (00:50→11:57)
[2018-02-10] MEDS: HYDROCODONE/APAP 7.5MG-325MG 1 EA TAB PO PRN ×3 (04:29→22:03)
[2018-02-10] MEDS: METOCLOPRAMIDE HCL 10 MG/2ML VIAL IV SCH (06:09)
[2018-02-10] MEDS: CEFOXITIN SOD 1 GM VIAL IV SCH ×4 (06:09→23:14)
[2018-02-10] MEDS: HYDROMORPHONE 2MG/ML 2 MG/ML ML IV PRN ×3 (06:10→16:00)
[2018-02-10] MEDS: KETOROLAC TROMETHAMINE 30 MG/ML VIAL IV PRN ×2 (09:59→18:45)
[2018-02-10] MEDS: PANTOPRAZOLE 40 MG 10ML VIAL IV SCH (11:57)
[2018-02-10] MEDS: SODIUM CHLORIDE 0.9% 1000ML 1,000 ML IV SCH (16:00)
[2018-02-11] VITALS (8 sets, daily range): BP systolic 122–132; BP diastolic 63–76
[2018-02-11] MEDS: HYDROCODONE/APAP 7.5MG-325MG 1 EA TAB PO PRN ×3 (02:03→22:07)
[2018-02-11] MEDS: SODIUM CHLORIDE 0.9% 1000ML 1,000 ML IV SCH (02:15)
[2018-02-11] MEDS: CEFOXITIN SOD 1 GM VIAL IV SCH ×3 (06:00→17:47)
[2018-02-11] MEDS: HYDROMORPHONE 2MG/ML 2 MG/ML ML IV PRN ×3 (06:05→16:30)
[2018-02-11] MEDS: LISINOPRIL 20 MG TAB PO SCH (08:50)
[2018-02-11] MEDS: HYDROCHLOROTHIAZIDE 25 MG TAB PO SCH (08:50)
[2018-02-11] MEDS: PANTOPRAZOLE 40 MG 10ML VIAL IV SCH (11:12)
[2018-02-11] MEDS: KETOROLAC TROMETHAMINE 30 MG/ML VIAL IV PRN ×2 (13:15→19:27)
[2018-02-12] VITALS: BP 126/66
[2018-02-12] MEDS: CEFOXITIN SOD 1 GM VIAL IV SCH ×2 (00:48→06:24)
[2018-02-12] MEDS: HYDROCODONE/APAP 7.5MG-325MG 1 EA TAB PO PRN ×2 (02:11→06:10)
[2018-02-12 04:55] VITALS: BP 99/55
[2018-02-12] MEDS: SODIUM CHLORIDE 0.9% 1000ML 1,000 ML IV SCH (07:38)
[2018-02-12 08:00] VITALS: BP 116/64
--- NOTE | 2018-02-12 09:00 | Discharge Summary ---
DISCHARGE DIAGNOSIS: Status post Steven's procedure for perforated complicated sigmoid diverticulitis in October 2017. PROCEDURE PERFORMED: On February 05, 2018, exploratory laparotomy, lysis of adhesions, low anterior resection of the colon with hand-sewn anastomosis. HISTORY OF PRESENT ILLNESS AND HOSPITALIZATION COURSE: The patient is a 33-year-old male who had undergone in October 2017 the previously described procedure. The patient was admitted for colostomy closure. He had a barium enema preoperative that revealed no lesions. No residual tics in the stump. Some anterior tics in the area of the stoma site. Physical examination revealed a healed midline scar with a colostomy that was viable and working in the left lower quadrant. HOSPITALIZATION COURSE: Following admission, the patient underwent the previously described procedure. Postoperative course was unremarkable. The patient remained afebrile. He had an NG tube that was removed postoperatively and his diet was resumed. His pain was controlled initially with TYPISTS SUPERVISOR pump and then with oral pain meds. The patient was discharged home in satisfactory condition, afebrile and tolerating a regular diet well on February 12, 2018. He was given postop instruction. He was given Lortab 7.5 mg 1 p.o. q. 4-6 h. p.r.n. for pain, #40 with no refills. He was given wound care instructions and activity instructions. He has not work tolerance. He will be followed up in my office 2 days following discharge to remove a couple of Sergio drains that were left in situ after they were advanced the day of discharge. DIXIE MORTON MD Job#: [id number] [place]
[2018-02-12 09:43] VITALS: BP 116/64
[2018-02-12] MEDS: LISINOPRIL 20 MG TAB PO SCH (09:50)
[2018-02-12] MEDS: HYDROCHLOROTHIAZIDE 25 MG TAB PO SCH (09:50)
[2018-02-12] MEDS: HYDROMORPHONE 2MG/ML 2 MG/ML ML IV PRN (10:10)
[2018-02-12] MEDS ORDERED: HYDROCODON-ACE1 EA15 PO (11:03)
== END 2018-02-12 11:26 | disposition home or self-care (01) | DRG 331 ==
LOC: OR 05:32 → PACU V 12:31 → MED/SURG 14:01
PROVIDERS: ADMIT Surgery; ATTEND Surgery
PROC: 0DN80ZZ Release Small Intestine, Open Approach (ICD-10-PCS; 2018-02-05)
PROC: BD14YZZ Fluoroscopy of Colon using Other Contrast (ICD-10-PCS; 2018-02-05)
PROC: 0DJD8ZZ Inspection of Lower Intestinal Tract, Via Natural or Artificial Opening Endoscopic (ICD-10-PCS; 2018-02-05)
PROC: 0DSM0ZZ Reposition Descending Colon, Open Approach (ICD-10-PCS; principal; 2018-02-05 07:30)
PROC: 0DTN0ZZ Resection of Sigmoid Colon, Open Approach (ICD-10-PCS; 2018-02-05 07:30)
DX: Z43.3 Encounter for attention to colostomy (principal)
CPT/HCPCS: 36415; 74018; 80048; 81003; 85025; 86850; 86900; 88307; 93005; 96361; J0694; J1100; J1885; J2001; J2250; J2405; J2765; J7030

== ENCOUNTER 2018-02-28 14:16 | Inpatient (IN) | payer BC ==
[~2018-02-28] VITALS: Ht 172.7 cm; Wt 108.0 kg
[2018-02-28] MEDS: METRONIDAZOLE 500MG/NS 100ML 100 ML IV SCH ×2 (06:00→20:51)
[~2018-02-28 14:16] MED LIST changes: +HYDROCODON-ACE1 EA15 PO
[2018-02-28] MEDS ORDERED: SODIUM CHLORIDE 0.9% 1000ML 1,000 ML IV STA (14:42)
[2018-02-28] MEDS ORDERED: DIATRIZOATE MEGL/DIATRIZOA SOD 30 ML BTL PO ONE (14:57)
[2018-02-28] MEDS ORDERED: ONDANSETRON HCL INJ 2 MG/ML VIAL IV ONE ×2 (15:00→18:15)
[2018-02-28 15:02] LABS: BASOPHILS # (AUTO) 0.1 (0.0-0.1); BASOPHILS % 0.6 % (0.0-1.0); EOSINOPHILS # (AUTO) 0.5 (0.0-0.4); EOSINOPHILS % 3.2 % (0.0-6.0); HEMATOCRIT 40.4 % (38.2-49.6); HEMOGLOBIN 13.8 g/dL (14.0-18.0); LYMPHOCYTES # (AUTO) 2.7 (1.0-3.2); LYMPHOCYTES % 18.9 % (18.0-39.1); MEAN CORPUSCULAR HEMOGLOBIN 28.7 pg (28-32); MEAN CORPUSCULAR HGB CONC 34.2 g/dL (31-35); MONOCYTES % 6.6 % (4.4-11.3); NEUTROPHILS # (AUTO) 10.2 (2.1-6.9); NEUTROPHILS % 70.4 % (38.7-80.0); PLATELET COUNT 575 x10e3/uL (140-360); RED BLOOD COUNT 4.81 x10e6/uL (4.3-5.7); RED CELL DISTRIBUTION WIDTH 12.2 % (11.7-14.4)
[2018-02-28 15:13] LABS: BILIRUBIN,URINE NEGATIVE (NEGATIVE); CLARITY,URINE CLEAR (CLEAR); COLOR,URINE YELLOW (YELLOW); KETONES,URINE NEGATIVE (NEGATIVE); LEUKOCYTE ESTERASE ,URINE NEGATIVE (NEGATIVE); NITRITE,URINE NEGATIVE (NEGATIVE); PROTEIN,URINE DIPSTICK NEGATIVE (NEGATIVE); URINE UROBILINOGEN 0.2 mg/dL (0.2 - 1)
[2018-02-28 15:16] LABS: ALANINE AMINOTRANSFERASE 22 IU/L (0-55); ALBUMIN 4.1 g/dL (3.5-5.0); ALKALINE PHOSPHATASE 82 IU/L (40-150); ANION GAP 15.7 mmol/L (8-16); BLOOD UREA NITROGEN 9 mg/dL (7-26); BUN/CREATININE RATIO 10 (6-25); CALCIUM 9.6 mg/dL (8.4-10.2); CARBON DIOXIDE 25 mmol/L (22-29); CHLORIDE 98 mmol/L (98-107); CREATININE, SERUM 0.93 mg/dL (0.72-1.25); EST GLOMERULAR FILTRATION RATE > 60 ML/MIN (60-); GLUCOSE 95 mg/dL (74-118); LIPASE 17 U/L (8-78); POTASSIUM 3.7 mmol/L (3.5-5.1); SODIUM 135 mmol/L (136-145)
[2018-02-28 15:28] LABS: BACTERIA,URINE MODERATE /HPF; EPITHELIAL CELLS,URINE RARE /LPF
--- NOTE | 2018-02-28 16:44 | NUR ---
PATIENT TO ER ROOM 10 VIA WHEELCHAIR. ASSUMED CARE AT THIS TIME. NO SIGNS OF ACUTE DISTRESS NOTED AT THIS TIME.
--- NOTE | 2018-02-28 17:15 | Diagnostic Imaging Report ---
CT Abdomen And Pelvis with Intravenous Contrast INDICATION: Reversal of colostomy 02/05/2018 with pain at site, nausea, vomiting, diarrhea, and decreased appetite for 2 weeks TECHNIQUE: Thin collimation axial images obtained from the diaphragm to the level of the pubic symphysis following the uneventful administration of 100 cc of low osmolar, nonionic intravenous contrast. Dose reduction techniques used: Automated exposure control, adjustment of the mAs and/or kVp according to patient size, standardized low-dose protocol, and/or iterative reconstruction technique. RADIATION DOSE: Total DLP: 846.1 mGy*cm Estimated effective dose: (DLP x 0.015 x size factor) mSv CTDIvol has been reviewed. It is below the limits set by the Radiation Protocol Committee (RPC). COMPARISON: CT abdomen/pelvis 10/26/2017. ABDOMEN FINDINGS: Lung Bases: Subsegmental atelectasis in the lingula is stable. Visualized portion of the mediastinum is normal. Liver: Normal attenuation. No evidence for mass. Gallbladder: Present and appears normal. No biliary ductal dilatation. Pancreas: Normal attenuation without mass or ductal dilatation. Spleen: Normal in size. No evidence of mass.. Adrenal Glands: No evidence for mass. Kidneys: Right: Normal enhancement. No soft tissue mass. No hydronephrosis. Left: Normal enhancement. No soft tissue mass. No hydronephrosis. Lymph Nodes: No enlarged abdominal lymph nodes. No enlarged periaortic lymph nodes. Prominent right lower quadrant lymph nodes measure up to 1.8 cm. Previously, lymph nodes measured up to 1.6 cm. These are likely reactive. Aorta: Normal in diameter PELVIS FINDINGS: Bowel: Stomach: Normal in caliber with normal wall thickness. Small Bowel: There is enteric contrast throughout the small bowel. Postoperative changes of the small bowel have been performed with primary anastomosis. No mural thickening or associated inflammation. Large Bowel: Contains enteric contrast in the ascending colon. There is inflammation of a segment of the descending colon/proximal sigmoid colon as it turns midline with circumferential mural thickening (coronal image 55). There are no associated staple lines. The distal sigmoid colon and rectum are collapsed. Peritoneal inflammation extends from the area of luminal thickening anteriorly involving one or 2 small bowel loops (axial image 63). Peritoneal inflammation continues anteriorly towards the linea alba. There is contiguous inflammation in the left paracolic gutter without associated fluid collection. Appendix: Normal appendix. Bladder: Normal. No free fluid or fluid collection. Soft tissues: Soft tissue inflammation in the anterior left lower quadrant without air, bowel, or fluid collection. There is inflammation surrounding the umbilicus and the peritoneum immediately inferior. Midline laparotomy is well-healed. Bones: Unremarkable for age. IMPRESSION: 1. Inflammation and luminal narrowing of the distal descending/proximal sigmoid colon with adjacent peritoneal inflammation that extends towards the anterior peritoneum involving several small bowel loops. The luminal narrowing may be secondary to primary anastomosis for potential underlying mass. The inflammation of the peritoneum may be secondary to surgery or colitis but a bowel leak or developing fistula cannot be excluded. Repeat CT in 24 hours with rectal contrast instillation is needed for further characterization. There is no evidence of abscess. 2. Postoperative changes of the small bowel without bowel obstruction. 3. Postoperative inflammation of the abdominal wall without associated fluid collection. Signed by: Dr. Christiano Arnold MD on 02/28/2018 5:12 PM
[2018-02-28] MEDS ORDERED: SODIUM CHLORIDE 0.9% 50ML 50 ML ONE (17:29)
[2018-02-28] MEDS ORDERED: IOPAMIDOL 370 MG/ML 200 ML INFUS..BTL INJ ONE (17:29)
[2018-02-28] MEDS ORDERED: MORPHINE SULFATE INJ 4 MG/ML INJ IV PRN (18:15)
[2018-02-28] MEDS ORDERED: SODIUM CHLORIDE 0.9% 1000ML 1,000 ML IV ONE (18:15)
[2018-02-28] MEDS ORDERED: PIPER-TAZ 3.375 GM 50 ML IV SCH (18:30)
--- NOTE | 2018-02-28 18:50 | NUR ---
verbal report given to tanvi ryan.
[2018-02-28] MEDS ORDERED: METRONIDAZOLE 500MG/NS 100ML 100 ML IV SCH (19:00)
[2018-02-28] MEDS: SODIUM CHLORIDE 0.9% 1000ML 1,000 ML IV SCH (20:15)
[2018-02-28] MEDS: PIPER-TAZ 3.375 GM 50 ML IV SCH (20:15)
[2018-02-28 21:30] VITALS: BP 116/65
[2018-02-28] MEDS ORDERED: MORPHINE SULFATE 2 MG/ML SYR IV PRN (21:30)
--- NOTE | 2018-02-28 21:30 | NUR ---
PATIENT RECEIVED FROM THE EMERGENCY DEPARTMENT PER STRETCHER AT 2126. ALERT, ORIENTED X3, NO RESPIRATORY DISTRESS OBSERVED. HE C/O PAIN TO THE ABDOMEN AND NAUSEA, PATIENT TOLD THAT HIS MEDICATIONS ARE NOT DUE YET. STERI-STRIPS DRY AND INTACT TO THE ABDOMINAL INCISIONS, NO DRAINAGE NOTED TO THE SITE. IV INTACT TO THE RIGHT AC, PATIENT ORIENTED TO SURROUNDINGS, AND CALL LIGHT WITHIN EASY REACH.
[2018-02-28 21:40] VITALS: BP 116/65
[2018-02-28] MEDS ORDERED: PIPER-TAZ 3.375 GM / NS 50ML IV SCH (22:00)
[2018-02-28] MEDS: MORPHINE SULFATE INJ 4 MG/ML INJ IV PRN (22:06)
[2018-02-28] MEDS: ONDANSETRON HCL INJ 2 MG/ML VIAL IV PRN (22:06)
--- NOTE | 2018-02-28 22:06 | NUR ---
PATIENT C/O PAIN TO THE ABDOMEN WITH PAIN SCORE #4, MEDICATED WITH MORPHINE AND ZOFRAN ORDERED. CALL LIGHT WITHIN EASY REACH, INSTRUCTED TO CALL FOR ASSISTANCE NEEDED.
[2018-02-28 23:50] VITALS: BP 111/67
[2018-03-01] MEDS ORDERED: METRONIDAZOLE 500MG/NS 100ML IV SCH
--- NOTE | 2018-03-01 01:45 | NUR ---
PATIENT IS SOUNDLY ASLEEP, NO RESPIRATORY DISTRESS OBSERVE, CALL LIGHT WITHIN EASY REACH.
[2018-03-01] MEDS: METRONIDAZOLE 500MG/NS 100ML 100 ML IV SCH ×3 (04:06→19:12)
[2018-03-01] MEDS: MORPHINE SULFATE INJ 4 MG/ML INJ IV PRN ×4 (04:07→19:48)
[2018-03-01] MEDS: ONDANSETRON HCL INJ 2 MG/ML VIAL IV PRN ×4 (04:07→19:48)
--- NOTE | 2018-03-01 04:07 | NUR ---
PATIENT C/O NAUSEA AND PAIN TO THE ABDOMEN WITH PAIN SCORE #3, MEDICATED WITH ZOFRAN AND MORPHINE ORDERED. CALL LIGHT IN EASY REACH, PATIENT INSTRUCTED TO CALL FOR ASSISTANCE UPON GETTING OUT OF THE BED, URINAL IN EASY REACH.
[2018-03-01 04:20] VITALS: BP 116/68
[2018-03-01] MEDS: PIPER-TAZ 3.375 GM 50 ML IV SCH ×3 (05:13→22:56)
[2018-03-01 05:54] LABS: BASOPHILS # (AUTO) 0.1 (0.0-0.1); BASOPHILS % 0.4 % (0.0-1.0); EOSINOPHILS # (AUTO) 0.4 (0.0-0.4); EOSINOPHILS % 3.5 % (0.0-6.0); HEMATOCRIT 34.8 % (38.2-49.6); LYMPHOCYTES # (AUTO) 1.8 (1.0-3.2); LYMPHOCYTES % 16.2 % (18.0-39.1); MEAN CORPUSCULAR HEMOGLOBIN 27.9 pg (28-32); MEAN CORPUSCULAR HGB CONC 33.3 g/dL (31-35); MEAN CORPUSCULAR VOLUME 83.7 fL (81-99); MONOCYTES # (AUTO) 0.7 (0.2-0.8); MONOCYTES % 6.5 % (4.4-11.3); NEUTROPHILS # (AUTO) 8.3 (2.1-6.9); PLATELET COUNT 465 x10e3/uL (140-360); RED BLOOD COUNT 4.16 x10e6/uL (4.3-5.7); RED CELL DISTRIBUTION WIDTH 12.5 % (11.7-14.4)
[2018-03-01 06:15] LABS: ALANINE AMINOTRANSFERASE 20 IU/L (0-55); ALBUMIN 3.4 g/dL (3.5-5.0); ALKALINE PHOSPHATASE 71 IU/L (40-150); ANION GAP 13.5 mmol/L (8-16); BLOOD UREA NITROGEN 8 mg/dL (7-26); BUN/CREATININE RATIO 9 (6-25); CALCIUM 8.7 mg/dL (8.4-10.2); CARBON DIOXIDE 24 mmol/L (22-29); CHLORIDE 100 mmol/L (98-107); CREATININE, SERUM 0.92 mg/dL (0.72-1.25); EST GLOMERULAR FILTRATION RATE > 60 ML/MIN (60-); GLUCOSE 95 mg/dL (74-118); POTASSIUM 3.5 mmol/L (3.5-5.1); SODIUM 134 mmol/L (136-145)
[2018-03-01 06:30] LABS: HEMOGLOBIN 11.6 g/dL (14.0-18.0)
[2018-03-01 08:35] VITALS: BP 108/65
[2018-03-01] MEDS: SODIUM CHLORIDE 0.9% 1000ML 1,000 ML IV SCH ×2 (09:52→15:05)
--- NOTE | 2018-03-01 09:53 | NUR ---
Patient alert and responsive, c/o abdl pain and medicated, also medicated for nausea, IV line in place, afebrile, VSS, call light within reach, will monitor
[2018-03-01 10:46] VITALS: BP 108/65
--- NOTE | 2018-03-01 13:49 | History and Physical ---
CHIEF COMPLAINT: Vomiting. The patient is a 33-year-old pleasant male who in February 05 2018 underwent closure of colostomy with handsewn anastomosis for perforated complicated sigmoid diverticulitis. The patient did well postoperatively, and was discharged home. He was doing well on followup. However, a couple of days ago the patient started having vomiting, nausea, and he was asked to come to the emergency room. The patient came to the emergency room, and was then admitted to the hospital. In the emergency room, he was found to have leukocytosis at 14,000, and a CT scan that had revealed postsurgical changes with some narrowing of the area of the anastomosis. There was no abdominal abscess or evidence of small bowel obstruction . The patient upon admission denied any fever or chills or rectal bleeding. His main complaint was the nausea and vomiting. He has been having some loose bowel movements following the closure of the colostomy. He is still passing gas and denies any rectal bleeding. PAST MEDICAL HISTORY: Unchanged from the previous admission. REVIEW OF SYSTEMS : As per history of present illness. PHYSICAL EXAMINATION GENERAL: Reveals a 33-year-old male awake, alert and in no acute distress. Afebrile with stable vital signs. HEENT: Reveals no acute process. LUNGS: Clear. HEART: Reveals regular rhythm. ABDOMEN: Soft. There are no peritoneal signs. There is healed colostomy site scars, as well as a midline incision that are healed completely. EXTREMITIES: Reveals no clubbing, cyanosis or edema. ADMISSION LABORATORY: Revealed a white count of 14,000 and essentially normal electrolytes. ASSESSMENT 1. Leukocytosis. 2. Nausea and vomiting with a computerized tomography scan that reveals some narrowing of the anastomosis: There is no abscess formation. There is no free intra-abdominal fluid. 3.Dehydration secondary to above. PLAN: At this point, the patient will be rehydrated and given empiric intravenous antibiotics. We will keep him n.p.o. and hopefully we can advance his diet as his condition improves. Further workup will depend on his clinical course. Job#: [id number] LALI HATCH
--- NOTE | 2018-03-01 18:37 | NUR ---
Patient alert and responsive, had 2 BMs today and tolerating IV abx, afebrile, VSS, call light within reach and will monitor
--- NOTE | 2018-03-01 18:47 | NUR ---
Orders per Dr. Caio Spear for Cdiff and Ova and parasite stool sample.
[2018-03-01 18:59] VITALS: BP 126/69
--- NOTE | 2018-03-01 19:55 | NUR ---
TWO STERI-STRIPS DRY AND INTACT TO THE ABDOMINAL INCISION SITE, THE SURGICAL SCARS ARE DRY WITHOUT DRAINAGE. PATIENT C/O NAUSEA AND PAIN TO THE ABDOMEN WITH PAIN SCORE #5, MEDICATED WITH ZOFRAN AND MORPHINE ORDERED. CALL LIGHT WITHIN EASY REACH, PATIENT INSTRUCTED TO CALL FOR ASSISTANCE NEEDED.
[2018-03-01 20:11] VITALS: BP 126/65
--- NOTE | 2018-03-01 20:35 | NUR ---
PATIENT HAS TEMPERATURE OF 100.1, HE'S ENCOURAGED TO GET OUT OF THE BED AND AMBULATE IN THE ROOM SINCE THE FLOOR IS BEEN WAX IN THE CANDELARIA.
[2018-03-02] VITALS (7 sets, daily range): BP systolic 114–151; BP diastolic 62–94
[2018-03-02] MEDS: METRONIDAZOLE 500MG/NS 100ML 100 ML IV SCH ×4 (00:18→17:51)
[2018-03-02] MEDS: MORPHINE SULFATE INJ 4 MG/ML INJ IV PRN ×5 (00:19→20:38)
[2018-03-02] MEDS: ONDANSETRON HCL INJ 2 MG/ML VIAL IV PRN ×5 (00:19→20:38)
[2018-03-02] MEDS: SODIUM CHLORIDE 0.9% 1000ML 1,000 ML IV SCH ×4 (00:20→20:42)
--- NOTE | 2018-03-02 03:32 | NUR ---
PATIENT IS SOUNDLY ASLEEP, HE'S EASY TO AROUSE. NO RESPIRATORY DISTRESS OBSERVED, CALL LIGHT WITHIN EASY REACH. HE C/O NAUSEA BUT HE HAS NOT VOMITED. PATIENT ALSO C/O PAIN TO THE ABDOMEN WITH PAIN SCORE #3, HE WAS TOLD THAT HIS PAIN MEDICATION IS NOT DUE YET.
--- NOTE | 2018-03-02 06:04 | NUR ---
PATIENT C/O PAIN TO THE ABDOMEN AND NAUSEA, MEDICATED WITH ZOFRAN AND MORPHINE ORDERED. CALL LIGHT IN EASY REACH, INSTRUCTED TO CALL FOR ASSISTANCE NEEDED.
[2018-03-02] MEDS: PIPER-TAZ 3.375 GM 50 ML IV SCH (07:21)
[2018-03-02 07:54] LABS: BASOPHILS % 0.2 % (0.0-1.0); EOSINOPHILS # (AUTO) 0.3 (0.0-0.4); EOSINOPHILS % 2.3 % (0.0-6.0); HEMATOCRIT 32.7 % (38.2-49.6); HEMOGLOBIN 11.2 g/dL (14.0-18.0); LYMPHOCYTES # (AUTO) 1.9 (1.0-3.2); LYMPHOCYTES % 12.9 % (18.0-39.1); MEAN CORPUSCULAR HEMOGLOBIN 28.7 pg (28-32); MEAN CORPUSCULAR HGB CONC 34.3 g/dL (31-35); MEAN CORPUSCULAR VOLUME 83.8 fL (81-99); MONOCYTES # (AUTO) 0.8 (0.2-0.8); MONOCYTES % 5.1 % (4.4-11.3); NEUTROPHILS # (AUTO) 11.6 (2.1-6.9); NEUTROPHILS % 79.2 % (38.7-80.0); PLATELET COUNT 375 x10e3/uL (140-360); RED CELL DISTRIBUTION WIDTH 12.2 % (11.7-14.4)
[2018-03-02 08:14] LABS: ALANINE AMINOTRANSFERASE 16 IU/L (0-55); ALBUMIN 3.1 g/dL (3.5-5.0); ALBUMIN/GLOBULIN RATIO 0.9 (0.8-2.0); ALKALINE PHOSPHATASE 68 IU/L (40-150); ANION GAP 13.6 mmol/L (8-16); BLOOD UREA NITROGEN 6 mg/dL (7-26); BUN/CREATININE RATIO 6 (6-25); CALCIUM 8.5 mg/dL (8.4-10.2); CARBON DIOXIDE 23 mmol/L (22-29); CHLORIDE 101 mmol/L (98-107); CREATININE, SERUM 0.98 mg/dL (0.72-1.25); EST GLOMERULAR FILTRATION RATE > 60 ML/MIN (60-); GLUCOSE 87 mg/dL (74-118); POTASSIUM 3.6 mmol/L (3.5-5.1); SODIUM 134 mmol/L (136-145)
--- NOTE | 2018-03-02 10:55 | NUR ---
TELEPHONED MD Rex MORTON'S OFFICE TO MAKE AWARE THAT PT HAS CDIFF AND IS BEING TRANSFERRED TO ROOM 299, STILL IN SURGERY, UNABLE TO NOTIFY AT THIS TIME
--- NOTE | 2018-03-02 11:07 | NUR ---
REPORT TO JULIEN YAP TAKING OVER CARE OF PT
--- NOTE | 2018-03-02 11:21 | NUR ---
PT TRANSFERRED TO ROOM 299, NO CHANGE IN CONDITION, ALL PERSONAL BELONGINGS WITH HIM, FAMILY AT SIDE
--- NOTE | 2018-03-02 11:36 | NUR ---
recd pt from rm 112 via w/c denies pain ,no distress ntoed.
--- NOTE | 2018-03-02 12:04 | NUR ---
CASE MANAGEMENT INITIAL ASSESSMENT Preparer to bedside to discuss plan of care with patient/family. CM/SW role and care transitions discussed. Anticipated discharge plan discussed along with duration of care. CM/SW discussed patients right to make decisions in care. CM/SW work hours given. 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 Name and number was also written on the patients whiteboard. Patient verbalized understanding of discussion. CM will follow-up with ongoing discharge and transition of care needs.
--- NOTE | 2018-03-02 12:39 | NUR ---
SPOKE WITH MD Rex MORTON, MADE AWARE OF POSITIVE C DIFF AND THAT PT TRANSFERRED TO ROOM 299, ORDERS NOTED
--- NOTE | 2018-03-02 16:15 | NUR ---
pt c/o nausea /pain medicated
--- NOTE | 2018-03-02 17:20 | NUR ---
PT RESTING NO S/S DISCOMFORT
[2018-03-02] MEDS: VANCOMYCIN 250MG/5ML ORAL SOLN PO SCH (17:51)
--- NOTE | 2018-03-02 20:45 | NUR ---
RECEIVED PT IN BED AOX3 .NOTED STERI STRIP AT THE SURGERY RECEIVED PT IN BED AOX3 .FAMILY AT THE BEDSIDE .PT C/O PAIN AND NAUSEA GIVEN MORPHINE AND ZOFRAN .CONTINUE TO MONITOR
[2018-03-03] VITALS (7 sets, daily range): BP systolic 125–147; BP diastolic 64–86
[2018-03-03] MEDS: MORPHINE SULFATE INJ 4 MG/ML INJ IV PRN ×4 (00:45→20:53)
[2018-03-03] MEDS: ONDANSETRON HCL INJ 2 MG/ML VIAL IV PRN ×3 (00:45→15:30)
[2018-03-03] MEDS: METRONIDAZOLE 500MG/NS 100ML 100 ML IV SCH ×4 (06:15→17:56)
[2018-03-03] MEDS: VANCOMYCIN 250MG/5ML ORAL SOLN PO SCH ×4 (06:15→17:56)
[2018-03-03] MEDS: SODIUM CHLORIDE 0.9% 1000ML 1,000 ML IV SCH (06:38)
[2018-03-03 06:56] LABS: BASOPHILS % 0.4 % (0.0-1.0); EOSINOPHILS # (AUTO) 0.4 (0.0-0.4); EOSINOPHILS % 4.3 % (0.0-6.0); HEMATOCRIT 34.3 % (38.2-49.6); HEMOGLOBIN 11.7 g/dL (14.0-18.0); LYMPHOCYTES # (AUTO) 1.6 (1.0-3.2); LYMPHOCYTES % 16.1 % (18.0-39.1); MEAN CORPUSCULAR HEMOGLOBIN 28.5 pg (28-32); MEAN CORPUSCULAR HGB CONC 34.1 g/dL (31-35); MEAN CORPUSCULAR VOLUME 83.5 fL (81-99); MONOCYTES # (AUTO) 0.5 (0.2-0.8); MONOCYTES % 5.1 % (4.4-11.3); NEUTROPHILS # (AUTO) 7.5 (2.1-6.9); NEUTROPHILS % 73.7 % (38.7-80.0); PLATELET COUNT 395 x10e3/uL (140-360); RED BLOOD COUNT 4.11 x10e6/uL (4.3-5.7); RED CELL DISTRIBUTION WIDTH 11.9 % (11.7-14.4)
--- NOTE | 2018-03-03 07:14 | NUR ---
PT C/O PAIN AND GIVEN ORDERED PAIN MEDICATION .PT RESTING FAMILY AT THE BEDSIDE .REPORT GIVEN TO THE ONCOMING NURSE
[2018-03-03 07:16] LABS: ALANINE AMINOTRANSFERASE 16 IU/L (0-55); ALBUMIN 3.1 g/dL (3.5-5.0); ALBUMIN/GLOBULIN RATIO 0.9 (0.8-2.0); ALKALINE PHOSPHATASE 62 IU/L (40-150); ANION GAP 14.9 mmol/L (8-16); BLOOD UREA NITROGEN 6 mg/dL (7-26); BUN/CREATININE RATIO 7 (6-25); CALCIUM 8.4 mg/dL (8.4-10.2); CARBON DIOXIDE 22 mmol/L (22-29); CHLORIDE 105 mmol/L (98-107); CREATININE, SERUM 0.83 mg/dL (0.72-1.25); EST GLOMERULAR FILTRATION RATE > 60 ML/MIN (60-); GLUCOSE 75 mg/dL (74-118); POTASSIUM 3.9 mmol/L (3.5-5.1); SODIUM 138 mmol/L (136-145)
--- NOTE | 2018-03-03 15:34 | NUR ---
DRSG TO LT FOOT CHAGED ORDERED
--- NOTE | 2018-03-03 19:20 | NUR ---
Patient visited in room during nursing rounds. Patient alert and oriented x3. On IVF (NS at 100ml/hr). Patient has intermittent abdominal pain. Ambulatory in room prn. Will monitor patient closely.
[2018-03-04] MEDS: SODIUM CHLORIDE 0.9% 1000ML 1,000 ML IV SCH ×3 (00:03→12:30)
[2018-03-04] MEDS: METRONIDAZOLE 500MG/NS 100ML 100 ML IV SCH ×3 (00:03→12:00)
[2018-03-04] MEDS: VANCOMYCIN 250MG/5ML ORAL SOLN PO SCH ×3 (00:03→12:00)
[2018-03-04 01:33] VITALS: BP 103/66
[2018-03-04] MEDS: MORPHINE SULFATE INJ 4 MG/ML INJ IV PRN ×2 (02:10→06:17)
--- NOTE | 2018-03-04 02:15 | NUR ---
Dr. Nathan Reece came and saw patient in room during rounds. MD aware of patient condition. MD changed diet order from Full Liquid diet to GI Soft Diet.
[2018-03-04 04:00] VITALS: BP 121/70
[2018-03-04 08:16] VITALS: BP 132/78
[2018-03-04] MEDS ORDERED: COLLAGENASE 5 GM TUBE TOP SCH (09:00)
[2018-03-04 09:45] VITALS: BP 132/78
[2018-03-04 10:10] LABS: BASOPHILS % 0.4 % (0.0-1.0); EOSINOPHILS # (AUTO) 0.4 (0.0-0.4); EOSINOPHILS % 5.3 % (0.0-6.0); HEMATOCRIT 36.6 % (38.2-49.6); HEMOGLOBIN 12.3 g/dL (14.0-18.0); LYMPHOCYTES # (AUTO) 1.8 (1.0-3.2); LYMPHOCYTES % 23.1 % (18.0-39.1); MEAN CORPUSCULAR HGB CONC 33.6 g/dL (31-35); MEAN CORPUSCULAR VOLUME 83.4 fL (81-99); MONOCYTES # (AUTO) 0.5 (0.2-0.8); NEUTROPHILS % 64.7 % (38.7-80.0); PLATELET COUNT 447 x10e3/uL (140-360); RED BLOOD COUNT 4.39 x10e6/uL (4.3-5.7); RED CELL DISTRIBUTION WIDTH 12.2 % (11.7-14.4)
[2018-03-04 10:33] LABS: ALANINE AMINOTRANSFERASE 18 IU/L (0-55); ALBUMIN 3.1 g/dL (3.5-5.0); ALBUMIN/GLOBULIN RATIO 0.8 (0.8-2.0); ALKALINE PHOSPHATASE 60 IU/L (40-150); ANION GAP 12.9 mmol/L (8-16); BLOOD UREA NITROGEN < 5 mg/dL (7-26); CALCIUM 8.6 mg/dL (8.4-10.2); CARBON DIOXIDE 25 mmol/L (22-29); CHLORIDE 104 mmol/L (98-107); CREATININE, SERUM 0.82 mg/dL (0.72-1.25); EST GLOMERULAR FILTRATION RATE > 60 ML/MIN (60-); GLUCOSE 98 mg/dL (74-118); POTASSIUM 3.9 mmol/L (3.5-5.1); SODIUM 138 mmol/L (136-145)
[2018-03-04 10:35] LABS: BUN/CREATININE RATIO 6 (6-25)
[2018-03-04 11:57] VITALS: BP 134/76
--- NOTE | 2018-03-04 12:27 | Discharge Summary ---
DISCHARGE DIAGNOSIS: Clostridium difficile colitis. CONSULTATIONS DURING THIS HOSPITALIZATION: GI, Dr. Nathan Marquez. HISTORY OF PRESENT ILLNESS AND HOSPITALIZATION COURSE: The patient is a 33-year-old male who had undergone, on , closure of colostomy secondary to Steven's procedure due to perforated complicated sigmoid diverticulitis. The patient initially was treated medically during the presentation for the diverticulitis in October. He did well and then was sent home on oral antibiotics after treatment with IV antibiotics. The patient then subsequent to that before an elective colon resection could be made, developed perforation of the colon which necessitated the Steven's procedure. The patient after the Steven's procedure went home in a stable condition and then he, approximately 3 weeks postop, developed basically severe nausea and vomiting and loose bowel movements, reason for which he was admitted. Upon admission, he had a leukocytosis. He was dehydrated and a CT scan that had showed postoperative changes mainly, without any evidence of abscess formation. The patient was given intravenous antibiotics. Stool samples were taken. His nausea was controlled. The stool came back positive for C. difficile; and at that point, he was started on vancomycin p.o. His Zosyn was discontinued, and Flagyl which had been started upon admission was continued. With this treatment, the patient's condition improved. His nausea resolved. His loose bowel movements became more normal, and he was discharged home in stable condition on 03/04/2018 on oral vancomycin 250 mg q.6 hours for a total of 2 weeks. He will be followed up in my office as an outpatient. Job#: [id number] LPA cc:NATHAN MARQUEZ MD
== END 2018-03-04 13:01 | disposition home or self-care (01) | DRG 373 ==
LOC: ER 14:16 → ERHOLD 18:57 → MED/SURG 21:27 → OBSVTOIN 03-01 13:27 → MED/SURG3 03-02 11:13
PROVIDERS: ADMIT Surgery; ATTEND Surgery
DX: A04.72 Enterocolitis due to Clostridium difficile, not specified as recurrent (principal); E86.0 Dehydration; Z90.49 Acquired absence of other specified parts of digestive tract; Z28.21 Immunization not carried out because of patient refusal
CPT/HCPCS: 36415; 74177; 80053; 81001; 83690; 85025; 87040; 87086; 87177; 87328; 87493; 96367; 96376; 99284; G0378; J2270; J2405; J2543; J7030; Q9967

== ENCOUNTER 2018-08-25 22:49 | Inpatient (IN) | payer BC ==
[~2018-08-25] VITALS: Ht 172.7 cm; Wt 108.0 kg
[2018-08-25] MEDS ORDERED: PANTOPRAZOLE 40 MG 10ML VIAL IV STA (23:02)
[2018-08-25] MEDS ORDERED: ONDANSETRON HCL INJ 2MG/ML 2ML 2 MG/ML VIAL IV STA (23:02)
[2018-08-25 23:17] LABS: BASOPHILS # (AUTO) 0.1 (0.0-0.1); BASOPHILS % 0.4 % (0.0-1.0); EOSINOPHILS # (AUTO) 0.2 (0.0-0.4); EOSINOPHILS % 1.5 % (0.0-6.0); HEMATOCRIT 41.3 % (38.2-49.6); HEMOGLOBIN 14.2 g/dL (14.0-18.0); LYMPHOCYTES % 23.7 % (18.0-39.1); MEAN CORPUSCULAR HEMOGLOBIN 29.2 pg (28-32); MEAN CORPUSCULAR HGB CONC 34.4 g/dL (31-35); MONOCYTES # (AUTO) 0.7 (0.2-0.8); MONOCYTES % 5.5 % (4.4-11.3); NEUTROPHILS # (AUTO) 8.5 (2.1-6.9); NEUTROPHILS % 68.6 % (38.7-80.0); PLATELET COUNT 450 x10e3/uL (140-360); RED BLOOD COUNT 4.86 x10e6/uL (4.3-5.7); RED CELL DISTRIBUTION WIDTH 12.4 % (11.7-14.4)
[2018-08-25 23:27] LABS: INR 0.92; PROTHROMBIN TIME 12.8 seconds (11.9-14.5)
[2018-08-25 23:28] LABS: BILIRUBIN,URINE NEGATIVE (NEGATIVE); CLARITY,URINE CLEAR (CLEAR); COLOR,URINE YELLOW (YELLOW); KETONES,URINE NEGATIVE (NEGATIVE); LEUKOCYTE ESTERASE ,URINE NEGATIVE (NEGATIVE); NITRITE,URINE NEGATIVE (NEGATIVE); PROTEIN,URINE DIPSTICK NEGATIVE (NEGATIVE); URINE UROBILINOGEN 0.2 mg/dL (0.2 - 1)
[2018-08-25 23:37] LABS: ALANINE AMINOTRANSFERASE 96 IU/L (0-55); ALBUMIN 3.9 g/dL (3.5-5.0); ALBUMIN/GLOBULIN RATIO 0.9 (0.8-2.0); ALKALINE PHOSPHATASE 99 IU/L (40-150); AMYLASE 113 U/L (25-125); ANION GAP 16.2 mmol/L (8-16); BLOOD UREA NITROGEN 12 mg/dL (7-26); BUN/CREATININE RATIO 12 (6-25); CARBON DIOXIDE 24 mmol/L (22-29); CHLORIDE 103 mmol/L (98-107); CREATINE KINASE 333 IU/L (30-200); CREATININE, SERUM 1.04 mg/dL (0.72-1.25); EST GLOMERULAR FILTRATION RATE > 60 ML/MIN (60-); GLUCOSE 113 mg/dL (74-118); LIPASE 26 U/L (8-78); POTASSIUM 4.2 mmol/L (3.5-5.1); SODIUM 139 mmol/L (136-145)
[2018-08-25 23:37] LABS: BACTERIA,URINE MODERATE /HPF; EPITHELIAL CELLS,URINE FEW /LPF; WBC,URINE (MAN) 0-5 /HPF (0-5)
[2018-08-26] VITALS (10 sets, daily range): BP systolic 127–148; BP diastolic 62–102
[2018-08-26] MEDS ORDERED: IOPAMIDOL 370 MG/ML 200 ML INFUS..BTL INJ ONE (01:17)
[2018-08-26] MEDS ORDERED: SODIUM CHLORIDE 0.9% 50ML 50 ML ONE (01:17)
--- NOTE | 2018-08-26 01:41 | Diagnostic Imaging Report ---
EXAM: CT Abdomen and Pelvis WITH contrast INDICATION: Abdominal pain. COMPARISON: 02/28/2018. TECHNIQUE: Abdomen and pelvis were scanned utilizing a multidetector helical scanner from the lung base to the pubic symphysis after administration of IV contrast. Coronal and sagittal reformations were obtained. Routine protocol was performed. Scan was performed when during portal venous phase. IV CONTRAST: 100 cc Isovue-370 ORAL CONTRAST: Water RADIATION DOSE: Total DLP: 856.45 mGy*cm Estimated effective dose: (DLP x 0.015 x size factor) mSv COMPLICATIONS: None FINDINGS: LINES and TUBES: None. LOWER THORAX: Lingular linear atelectasis versus scarring. HEPATOBILIARY: No focal hepatic lesions. No biliary ductal dilation. GALLBLADDER: No radio-opaque stones or sludge. No wall thickening. SPLEEN: No splenomegaly. PANCREAS: No focal masses or ductal dilatation. ADRENALS: No adrenal nodules KIDNEYS/URETERS: Kidneys enhance symmetrically. No hydronephrosis. No cystic or solid mass lesions. No stones. GI TRACT: There is mild dilatation of multiple small bowel loops, with recanalization of contents (small bowel feces sign) with a transitional point in the right lower quadrant on image 58 series 2. The colon is decompressed. There is a small bowel anastomosis in the left lower quadrant, with mild focal dilatation, up to 5.3 cm on image 45 series 2 which can be seen in absence of pathology. The appendix is normal. PELVIC ORGANS/BLADDER: Unremarkable. LYMPH NODES: No lymphadenopathy. VESSELS: Unremarkable. PERITONEUM / RETROPERITONEUM: No free air or fluid. BONES: Unremarkable. SOFT TISSUES: Prior ostomy site with subcutaneous dense fat stranding in the left lower quadrant. Small [place] fat-containing umbilical hernia. IMPRESSION: 1. Findings consistent with distal small bowel obstruction with transitional point in the right lower quadrant. Signed by: Dr. Yosef Alfaro M.D. on 08/26/2018 1:38 AM
[2018-08-26] MEDS ORDERED: BENZOCAINE/TETRACAINE/BUTAMBEN AERO SPRAY 56 GM CAN ONE (01:50)
--- NOTE | 2018-08-26 01:50 | NUR ---
ATTEMPTED TO INSERT 16 FR NGT TO L NARE. RESISTANCE NOTED, TUBE WITHDRAWN. 16 FR NGT INSERTED TO R NARE S DIFFICULTY. PLACEMENT VERIFIED BY AUSCULTATION. NGT CONNECTED TO LIWS SUCTION PER ORDERS.
[2018-08-26] MEDS ORDERED: HYDRALAZINE HCL 20 MG/ML VIAL IV PRN (02:00)
[2018-08-26] MEDS ORDERED: BENZOCAINE/TETRACAINE/BUTAMBEN AERO SPRAY 56 GM CAN TOP ONE (02:00)
[2018-08-26] MEDS ORDERED: MORPHINE SULFATE INJ 4 MG/ML INJ 1ML IV ONE (02:00)
[2018-08-26] MEDS ORDERED: MORPHINE SULFATE 2 MG/ML SYR 1ML IV PRN (02:00)
[2018-08-26] MEDS: SODIUM CHLORIDE 0.9% 1000ML 1,000 ML IV SCH ×4 (02:09→20:19)
[2018-08-26] MEDS: PIPER-TAZ 3.375 GM / NS 50ML IV SCH ×4 (02:09→21:20)
[2018-08-26] MEDS ORDERED: PIPER-TAZ 3.375 GM 50 ML ONE (02:10)
[2018-08-26] MEDS ORDERED: ONDANSETRON HCL INJ 2MG/ML 2ML 2 MG/ML VIAL ONE (02:10)
[2018-08-26] MEDS ORDERED: ONDANSETRON HCL INJ 2MG/ML 2ML 2 MG/ML VIAL IV STA (02:11)
--- NOTE | 2018-08-26 02:41 | NUR ---
RECEIVED PT TO UNIT ROOM 108 VIA STRETCHER.PT AAO X3.NO S/S OF DISTRESS.RESPIRATIONS EVEN AND NON LABORED.PT HAS NG TUBE TO RIGHT NARE,CONNECTED TO LIWS .IV TO RIGHT AC 20G INTACT WITH NS RUNNING AT 125ML/HR.ORIENTED PT TO ROOM,BATHROOM,CALL LIGHT/TV REMOTE.INSTRUCTED PT TO CALL FOR ASSISTANCE NEEDED BY USING CALL LIGHT.PT VERBALIZED UNDERSTANDING. AT BEDSIDE.CALL LIGHT WITHIN EASY REACH.
--- NOTE | 2018-08-26 03:34 | Diagnostic Imaging Report ---
EXAM: ABDOMEN-1VIEW (KUB), DATE: 08/26/2018 3:02 AM INDICATION: Assess Nasogastric tube placement. COMPARISON: 02/05/18. FINDINGS: Limited exam. LINES/TUBES: NG tube with distal tip projected on the gastric fundus laterally. BOWEL PATTERN: Underpenetration. Gas is present within bowel in the left lower quadrant. Findings concerning for obstruction identified on CT examination performed earlier on the same day is not appreciated on these exam likely due to technical differences. SOFT TISSUES: No abnormal calcifications. No mass effect. LUNG BASES: Clear. BONES: No acute findings. IMPRESSION: NG tube with distal tip projected on the gastric fundus laterally. Signed by: Dr. Yosef Alfaro M.D. on 08/26/2018 3:31 AM
[2018-08-26] MEDS: ONDANSETRON HCL INJ 2MG/ML 2ML 2 MG/ML VIAL IV PRN ×3 (04:49→20:10)
[2018-08-26] MEDS: MORPHINE SULFATE INJ 4 MG/ML INJ 1ML IV PRN ×4 (04:51→20:10)
--- NOTE | 2018-08-26 07:13 | NUR ---
REPORT GIVEN TO ONCOMING NURSE,WALKING ROUNDS DONE.PT RESTING IN BED WITH NO S/S OF DISTRESS.
--- NOTE | 2018-08-26 07:15 | NUR ---
PT RESTING IN BED AA0X3. PT STATES PAIN AT THIS TIME IS TOLERABLE TO ABD 4/10 PT IS RECEIVING PRN MORPHINE FOR COMFORT PT HAS AN NG TUBE TO THE RIGHT NARE WITH LCS, ABOUT 200CC OF CLEAR SECRETIONS NOTED ON CANISTER WITH RED SEDIMENTS NOTED ON BOTTOM OF CANISTER PT IS NPO PT IS ON IV FLUIDS TO THE RIGHT AC 20 G WITH NS AT 125CC/HR SITE IS CLEAN AND DRY WILL CONTINUE TO MONITOR CLOSELY SIDE RAILSX2, BED WHEELS LOCKED, CALL LIGHT IS WITHIN EASY REACH, INSTRUCTED TO CALL FOR ASSISTANCE IF NEEDED
--- NOTE | 2018-08-26 10:30 | NUR ---
CALLED MD FARIA OFFICE TO VERIFY MD RECEIVED CX. 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
--- NOTE | 2018-08-26 11:10 | Diagnostic Imaging Report ---
Exam: Abdominal film Clinical History: Small bowel obstruction Comparison: August 26, 2018 DISCUSSION: Scattered mildly dilated loops of small bowel with the largest in the right upper quadrant measuring 4 cm. Enteric tube with the distal tip overlying the stomach. IMPRESSION: Mildly dilated scattered loops of small bowel Signed by: Dr. Taiwo Romano M.D. on 08/26/2018 11:06 AM
--- NOTE | 2018-08-26 21:59 | NUR ---
Patient is on npo.ng tube is connected to low contd.wall suction.irrigation done.pt stated had a small amount of soft bowel movement.Assessment done.no resp.distress.pain voiced 09/19.pain medication given.iv right ac is patent.bed locked and in lowest position.phone and call light within reach.informed to call for assistance as needed.
--- NOTE | 2018-08-26 23:18 | NUR ---
ROUNDS THE PT.ORDERED ABD.ACUTE SERIES.
[2018-08-27] MEDS: MORPHINE SULFATE INJ 4 MG/ML INJ 1ML IV PRN ×5 (01:34→23:54)
[2018-08-27] MEDS: PIPER-TAZ 3.375 GM / NS 50ML IV SCH ×3 (05:46→22:11)
[2018-08-27 05:50] LABS: BASOPHILS % 0.5 % (0.0-1.0); EOSINOPHILS # (AUTO) 0.3 (0.0-0.4); EOSINOPHILS % 4.2 % (0.0-6.0); HEMATOCRIT 35.7 % (38.2-49.6); HEMOGLOBIN 12.3 g/dL (14.0-18.0); LYMPHOCYTES # (AUTO) 2.2 (1.0-3.2); LYMPHOCYTES % 32.4 % (18.0-39.1); MEAN CORPUSCULAR HEMOGLOBIN 29.6 pg (28-32); MEAN CORPUSCULAR HGB CONC 34.5 g/dL (31-35); MEAN CORPUSCULAR VOLUME 85.8 fL (81-99); MONOCYTES # (AUTO) 0.5 (0.2-0.8); MONOCYTES % 7.5 % (4.4-11.3); NEUTROPHILS # (AUTO) 3.7 (2.1-6.9); NEUTROPHILS % 55.1 % (38.7-80.0); PLATELET COUNT 365 x10e3/uL (140-360); RED BLOOD COUNT 4.16 x10e6/uL (4.3-5.7); RED CELL DISTRIBUTION WIDTH 12.5 % (11.7-14.4)
[2018-08-27] MEDS: ONDANSETRON HCL INJ 2MG/ML 2ML 2 MG/ML VIAL IV PRN ×4 (06:00→23:54)
[2018-08-27] MEDS: SODIUM CHLORIDE 0.9% 1000ML 1,000 ML IV SCH ×3 (06:11→22:11)
[2018-08-27 06:14] LABS: ALANINE AMINOTRANSFERASE 73 IU/L (0-55); ALBUMIN 3.3 g/dL (3.5-5.0); ALBUMIN/GLOBULIN RATIO 0.9 (0.8-2.0); ALKALINE PHOSPHATASE 79 IU/L (40-150); AMYLASE 63 U/L (25-125); ANION GAP 11.8 mmol/L (8-16); BLOOD UREA NITROGEN 10 mg/dL (7-26); BUN/CREATININE RATIO 10 (6-25); CALCIUM 8.8 mg/dL (8.4-10.2); CARBON DIOXIDE 25 mmol/L (22-29); CHLORIDE 106 mmol/L (98-107); CREATININE, SERUM 1.04 mg/dL (0.72-1.25); EST GLOMERULAR FILTRATION RATE > 60 ML/MIN (60-); GLUCOSE 102 mg/dL (74-118); LIPASE 14 U/L (8-78); POTASSIUM 3.8 mmol/L (3.5-5.1); SODIUM 139 mmol/L (136-145)
--- NOTE | 2018-08-27 06:50 | NUR ---
Bed side shift report given to the oncoming RN.stable condition.
--- NOTE | 2018-08-27 07:10 | NUR ---
BEDSIDE ROUNDS COMPLETED NO DISTRESS NOTED, UPDATED ON POC VOICED UNDERSTANDING, DENIES PAIN AT THIS TIME, LATOYA TO R MOHINDER CONNECTED TO LCWS, NO OTHER CO VOICED CALL LIGHT IN REACH WILL CONTINUE OT MONITOR
[2018-08-27 08:00] VITALS: BP 159/96
[2018-08-27] MEDS ORDERED: POLYETHYLENE GLYCOL 3350 17 GM PACK PO SCH (09:00)
--- NOTE | 2018-08-27 09:39 | Diagnostic Imaging Report ---
Exam: Acute abdominal series; 3 views with upright PA chest dated 08/27/2018. History: Small bowel obstruction Comparison: 08/26/2018 Findings: Bowel dilatation has diminished. There is a nasogastric tube with is tip below the diaphragm looped upon itself. No free peritoneal air. No abnormal calcifications. Upright chest reveals bibasilar atelectasis. No consolidation is identified. There is no free peritoneal air. Impression: No evidence suggest small bowel obstruction. Signed by: Dr. Lance Regan DO on 08/27/2018 9:36 AM
[2018-08-27 10:00] VITALS: BP 159/96
--- NOTE | 2018-08-27 12:09 | NUR ---
NG TUBE REMOVED PER ORDERED, TOLERATED WELL. CALL LIGHT IN REACH WILL CONTINUE TO MONITOR
[2018-08-27 12:27] VITALS: BP 153/98
--- NOTE | 2018-08-27 17:02 | History and Physical ---
CHIEF COMPLAINT: Abdominal pain. HISTORY OF PRESENT ILLNESS: The patient is a pleasant 33-year-old male, who was in his usual state of good health until the day of admission when he developed upper abdominal pain. This was associated with bowel movements that were loose. There was no vomiting. The patient ate ceviche prior to admission that evening. The patient because of the above symptoms presented to the emergency room at [facility] where he underwent a GI workup. He had a CT scan of the abdomen that revealed changes consistent with a small bowel obstruction. He was subsequently admitted for further care. PAST MEDICAL HISTORY: Significant for history of diverticulitis with multiple admissions. He underwent a Steven procedure during the summer and then in January of 2018 underwent colostomy reversal. ALLERGIES: THE PATIENT HAS NO KNOWN ALLERGIES. MEDICATIONS: He is taking no medicines. SOCIAL HISTORY: He does not drink or smoke. FAMILY HISTORY: Noncontributory. PHYSICAL EXAMINATION: GENERAL: Reveals a 33-year-old male, who is at this time in no acute distress. HEAD, EYES, EARS, NOSE, AND THROAT: Reveals no acute process. LUNGS: Clear. HEART: Reveals regular sinus rhythm. ABDOMEN: Soft, absolutely nontender. Bowel sounds are present. The wounds are healed. There is a small umbilical hernia. NEUROLOGIC: Nonfocal. ADMISSION LABORATORY DATA: Electrolytes are normal. His white count was 12.5. ASSESSMENT: Even though the CAT scan showed evidence of small bowel obstruction, the history is also highly significant for food poisoning given the fact that these symptoms developed after eating ceviche, which is a seafood dish, raw as well as there is a loose bowel movement. At this point, the patient seems to have improved significantly since admission. His nasogastric tube has been removed. He had a bowel movement and he is tolerating clear liquids well. PLAN: The plan is to continue with present care, possible discharge tomorrow. MD YANNA Sellers/CIERA /[id number]
[2018-08-27 17:09] VITALS: BP 149/99
--- NOTE | 2018-08-27 19:00 | NUR ---
BEDSIDE SHIFT REPORT GIVEN TO ONCOMING LITHOGRAPHED PLATE INSPECTOR, PT IN STABLE CONDITION, DENIES NEEDS OR PAIN AT THIS TIME, CALL LIGHT IN REACH WILL CONTINUE TO MONITOR
--- NOTE | 2018-08-27 19:23 | NUR ---
Received bedside shift report from day shift RN. Patient is laying on the bed, not in distress. Call light within reach, bed set low, side rails up x2, and wheels lock.
[2018-08-27 20:00] VITALS: BP 148/99
--- NOTE | 2018-08-27 23:55 | NUR ---
Patient had a BM described as yellow green liquid.
[2018-08-28] VITALS: BP 140/90
[2018-08-28 00:52] VITALS: BP 148/99
[2018-08-28 04:00] VITALS: BP 128/89
[2018-08-28] MEDS: PIPER-TAZ 3.375 GM / NS 50ML IV SCH (05:17)
[2018-08-28] MEDS: MORPHINE SULFATE INJ 4 MG/ML INJ 1ML IV PRN (06:32)
--- NOTE | 2018-08-28 07:11 | NUR ---
PT ALERT RESP EVEN AND UNLABORED AT THIS TIME NO DISTRESS NOTED . PT HAS NO C/O PAIN WHEN ASKED, CALL LIGHT IN REACH. FAMILY MEMBER AT BEDSIDE.
[2018-08-28 09:01] VITALS: BP 120/69
[2018-08-28 09:05] VITALS: BP 120/69
[2018-08-28] MEDS: SODIUM CHLORIDE 0.9% 1000ML 1,000 ML IV SCH (13:17)
[2018-08-28 13:59] VITALS: BP 127/90
--- NOTE | 2018-08-28 14:30 | NUR ---
pt iv site removed, no swelling no redness to site catheter tip intact. pt was asked to follow up with his PCP.
--- NOTE | 2018-08-28 17:23 | Discharge Summary ---
FINAL DISCHARGE DIAGNOSES: Small-bowel obstruction resolved, possible food poisoning, status post Steven's procedure for perforated, complicated sigmoid diverticulitis status post colostomy reversal and exploratory laparotomy. HISTORY: The patient is a 33-year-old male, who had been doing well following colostomy closure in January 2018, who now presents to the emergency room complaining of abdominal pain, crampy in nature. This was associated with ingestion of ceviche. However, some to his other family members had it and they did not have similar symptoms. The patient presented to the Patient's Emergency Room where he had a CT scan of the abdomen revealed changes consistent with bowel obstruction. PAST MEDICAL HISTORY: As previously stated. Otherwise, he has no major medical problems. Only surgical history. PHYSICAL EXAMINATION: Reveals a healed abdomen that was soft and nontender with healed colostomy site closure wound as well as midline upper abdomen wound, all which were healed. HOSPITALIZATION COURSE: He had an NG tube inserted the next day after the insertion of the NG tube. He had a bowel movement and x-rays revealed resolution of the small bowel obstruction. The patient was then started on clear liquids and this was advanced to a full liquid diet, which he tolerated well. The patient was discharged home on 08/28/2018, tolerating a regular diet well. He was given instructions to return to the ER should any problems arise. MD YANNA Sellers/[facility]ER[facility] /[id number]
== END 2018-08-28 14:12 | disposition home or self-care (01) | DRG 390 ==
LOC: ER 22:49 → ERHOLD 08-26 02:06 → MED/SURG 08-26 02:41
PROVIDERS: ADMIT Surgery; ATTEND Surgery
DX: K56.52 Intestinal adhesions [bands] with complete obstruction (principal); T62.91XA Toxic effect of unspecified noxious substance eaten as food, accidental (unintentional), initial encounter
CPT/HCPCS: 36415; 74018; 74019; 74022; 74177; 80053; 81001; 82150; 82550; 82553; 83690; 84484; 85025; 85610; 85730; 93005; 96374; 96375; 99284; J2270; J2405; J2543; J7030; Q9967

== ENCOUNTER → 2018-09-20 | Day surgery (SDC) | payer BC ==
[~2018-09-20] MED LIST changes: +FENTANYL CITRATE/PF 100MCG/2 ML INJ ONE; +GLUCAGON FOR INJ 1 MG VIAL ONE; +HYOSCYAMINE 0.125 MG TAB ONE; +KETAMINE HCL INJ 50 MG/ML 10 ML VIAL ONE; +LIDOCAINE HCL 2% LOCAL INJ 5 ML SDV VIAL INJ ONE; +MIDAZOLAM HCL 2 MG/2 ML VIAL ONE; +PROPOFOL IV EMULSION 10 MG/ML 50 ML VIAL ONE
[2018-09-20 14:35] VITALS: BP 115/84
--- NOTE | 2018-09-20 20:18 | Operative Report ---
DATE OF PROCEDURE: 09/20/2018 SURGEON: Nathan Reece MD PROCEUDRE: Colonoscopy with biopsies. REFERRING PHYSICIAN: Dr. John Paul Shine. INDICATIONS FOR COLONOSCOPY: History of ulcerated ileocecal valve. MEDICATIONS: The patient was done under MAC, please see anesthesiologist's note. PROCEDURE IN DETAIL: With the patient in left lateral decubitus position, a flexible fiberoptic Olympus colonoscope was inserted into the rectum with ease and advanced all the way to the cecum. Mucosa overlying the cecum appeared to be within normal limits. The ileocecal valve appeared ulcerated, now biopsies were obtained. It was then intubated and the scope was advanced into the terminal ileum. Several ulcers were noted in the terminal ileum without active bleeding or stigmata of recent hemorrhage. Biopsies were obtained. The scope was then withdrawn back into the colon. It was then withdrawn slowly and mucosa overlying the ascending colon, transverse colon appeared to be within normal limits. There was a mild segmental colitis noted in the descending colon and biopsies were obtained. Anastomosis was noted to be intact. The anastomotic site appeared to be intact about 25 cm from the anal verge. The rectum appeared to be within normal limits. The scope was then retroflexed into the distal rectum and moderate-sized internal hemorrhoids were noted, none of which were actively bleeding. The scope was then straightened out, it was subsequently withdrawn. The patient tolerated procedure well. IMPRESSION: 1. Ileocecal valve ulcerated, biopsied. 2. Ulcerative ileitis, biopsies obtained. 3. Segmental colitis mild, descending colon, biopsies obtained. 4. Minimal diverticulosis. 5. Anastomotic site intact. 6. Internal hemorrhoids none actively bleeding. PLAN: Follow up histology. Check IBD panel, CRP, and sedimentation rate. The patient will need a small bowel series electively. Nathan Reece MD [facility] [place] /[id number] cc: Dr. John Paul Shine
== END | disposition home or self-care (01) ==
LOC: OR 10:11
PROVIDERS: ATTEND Internal Medicine Gastroenterology
DX: Z09 Encounter for follow-up examination after completed treatment for conditions other than malignant neoplasm (principal); K51.90 Ulcerative colitis, unspecified, without complications; K57.30 Diverticulosis of large intestine without perforation or abscess without bleeding; Z98.0 Intestinal bypass and anastomosis status; K64.8 Other hemorrhoids; I10 Essential (primary) hypertension; Z68.39 Body mass index [BMI] 39.0-39.9, adult; Z80.0 Family history of malignant neoplasm of digestive organs
CPT/HCPCS: 36415; 45380; 85651; 86140; 86256; 86671; J1610; J2001; J2250; J2704; 45378; J3010

== ENCOUNTER → 2018-10-30 | Outpatient (CLI) | payer BC ==
[~2018-10-30] MED LIST changes: -FENTANYL CITRATE/PF 100MCG/2 ML INJ ONE; -GLUCAGON FOR INJ 1 MG VIAL ONE; -HYOSCYAMINE 0.125 MG TAB ONE; +IOPAMIDOL 370 MG/ML 200 ML INFUS..BTL INJ ONE; -KETAMINE HCL INJ 50 MG/ML 10 ML VIAL ONE; -LIDOCAINE HCL 2% LOCAL INJ 5 ML SDV VIAL INJ ONE; -MIDAZOLAM HCL 2 MG/2 ML VIAL ONE; -PROPOFOL IV EMULSION 10 MG/ML 50 ML VIAL ONE; +SODIUM CHLORIDE 0.9% 50ML 50 ML ONE
[2018-10-30 08:30] LABS: BLOOD UREA NITROGEN 10 mg/dL (7-26); BUN/CREATININE RATIO 13 (6-25); CREATININE, SERUM 0.78 mg/dL (0.72-1.25); EST GLOMERULAR FILTRATION RATE > 60 ML/MIN (60-)
--- NOTE | 2018-10-30 11:36 | Diagnostic Imaging Report ---
CT of the abdomen and pelvis, with contrast, 10/30/2018. History: Crohn's disease, history of partial bowel resection. Comparison: 08/26/2018. Technique: Multidetector CT scanning of the abdomen and pelvis was performed from the level of the lung bases to the inferior pubic rami after intravenous and oral (Volumen) administration of contrast, enterography protocol. Coronal and sagittal multiplanar reformations were obtained. RADIATION DOSE: Total DLP: 844 mGy*cm Dose modulation, iterative reconstruction, and/or weight based adjustment of the mA/kV was utilized to reduce the radiation dose to as low as reasonably achievable. Discussion: LUNG BASES: There is lingular atelectasis. ABDOMEN: The liver, gallbladder, biliary tree, spleen, pancreas, adrenal glands, and kidneys are normal. The hepatic vein, portal vein, and splenic vein are patent. The abdominal aorta is within normal limits for size. The stomach is unremarkable. Suture line is noted in the proximal small bowel. There is no bowel dilatation or wall thickening proximally. There is mild thickening of the terminal ileum wall measuring up to 9 mm, with mildly increased enhancement. There is no adjacent inflammatory fat stranding, free air, or focal fluid collection. The appendix is visualized and is normal. There is no evidence of adenopathy or free fluid. Small fat-containing ventral hernia is noted. PELVIS: The bladder, prostate, and seminal vesicles are normal in appearance. There is no evidence of free fluid or adenopathy. Small fat-containing inguinal hernias are present bilaterally. BONES AND SOFT TISSUES: Degenerative changes are present throughout the lumbar spine without evidence of lytic or sclerotic lesion. IMPRESSION: 1. Mild terminal ileum wall thickening and hyperenhancement consistent with Crohn's disease, but no evidence of obstruction or adjacent inflammatory change. 2. Fat-containing hernias as described above. Signed by: Ravin Hurd on 10/30/2018 11:33 AM
== END ==
LOC: CT 07:35
PROVIDERS: ATTEND Internal Medicine Gastroenterology
DX: K50.90 Crohn's disease, unspecified, without complications (principal)
CPT/HCPCS: 36415; 74177; 82565; 84520; Q9967

== ENCOUNTER → 2019-01-17 | Outpatient (CLI) | payer BC ==
[~2019-01-17] MED LIST changes: -IOPAMIDOL 370 MG/ML 200 ML INFUS..BTL INJ ONE; -SODIUM CHLORIDE 0.9% 50ML 50 ML ONE
--- NOTE | 2019-01-17 14:44 | Diagnostic Imaging Report ---
Small bowel series, 01/17/2019. History: Recurrent abdominal pain. Discussion: A director market intelligence film of the abdomen was obtained demonstrating no abnormality. Patient was given barium to drink and sequential digital images of the abdomen were obtained through 1.5 hours. Fluoroscopic spot images of the terminal ileum were obtained. Fluoroscopy time: 0.35 minutes. Dose: 56 mGy (KSENIA) The small bowel transit time is normal, and the small bowel loops are normal in size and appearance without evidence of mucosal irregularity or extrinsic abnormality. Terminal ileum is normal. There is no evidence of mass, obstruction, or diverticula. IMPRESSION: Normal small bowel series. Signed by: Ravin Hurd on 01/17/2019 2:41 PM
== END ==
LOC: DX 09:33
PROVIDERS: ATTEND Internal Medicine Gastroenterology
DX: K50.90 Crohn's disease, unspecified, without complications (principal)
CPT/HCPCS: 74250

== ENCOUNTER → 2019-02-27 | Outpatient (CLI) | payer BC ==
[~2019-02-27] MED LIST changes: +DIATRIZOATE MEGL/DIATRIZOA SOD 30 ML BTL PO ONE; +IOPAMIDOL 370 MG/ML 200 ML INFUS..BTL INJ ONE; +KEFLEX500 MG PO; +SODIUM CHLORIDE 0.9% 50ML 50 ML ONE
--- NOTE | 2019-02-27 10:12 | Diagnostic Imaging Report ---
CT of the abdomen and pelvis, with contrast, 02/27/2019. History: Abdominal pain, hernia. Comparison: 10/30/2018, 08/29/2018. Technique: Multidetector CT scanning of the abdomen and pelvis was performed from the level of the lung bases to the inferior pubic rami after intravenous and oral administration of contrast. Coronal and sagittal multiplanar reformations were obtained. RADIATION DOSE: Total DLP: 857 mGy*cm Dose modulation, iterative reconstruction, and/or weight based adjustment of the mA/kV was utilized to reduce the radiation dose to as low as reasonably achievable. Discussion: LUNG BASES: No visualized abnormalities. ABDOMEN: The liver, gallbladder, biliary tree, spleen, pancreas, adrenal glands, and kidneys are normal. The hepatic vein, portal vein, and splenic vein are patent. The abdominal aorta is within normal limits for size. The stomach, small bowel, and large bowel are unremarkable. There is no bowel dilatation, wall thickening, or adjacent inflammation. The appendix is visualized and is normal. There is no evidence of adenopathy or free fluid. A fat-containing ventral hernia is again noted, measuring approximately transversely 6 cm at the base. No bowel is seen within the hernia. PELVIS: The bladder, prostate, and seminal vesicles are normal in appearance. Small fat-containing bilateral inguinal hernias are present. There is no evidence of free fluid or adenopathy. BONES AND SOFT TISSUES: Degenerative changes are present throughout the lumbar spine without evidence of lytic or sclerotic lesion. IMPRESSION: Fat-containing ventral and inguinal hernias without change. Otherwise unremarkable CT of the abdomen and pelvis. Signed by: Ravin Hurd on 02/27/2019 10:09 AM
== END ==
LOC: CT 07:46
PROVIDERS: ATTEND Surgery
DX: K43.9 Ventral hernia without obstruction or gangrene (principal)
CPT/HCPCS: 74177; Q9967

== ENCOUNTER 2019-04-12 08:04 | Inpatient (IN) | payer BC ==
[2019-04-09 15:36] LABS: BASOPHILS # (AUTO) 0.1 (0.0-0.1); BASOPHILS % 0.6 % (0.0-1.0); EOSINOPHILS # (AUTO) 0.2 (0.0-0.4); EOSINOPHILS % 2.3 % (0.0-6.0); HEMATOCRIT 43.1 % (38.2-49.6); HEMOGLOBIN 14.9 g/dL (14.0-18.0); LYMPHOCYTES # (AUTO) 3.1 (1.0-3.2); MEAN CORPUSCULAR HEMOGLOBIN 29.7 pg (28-32); MEAN CORPUSCULAR HGB CONC 34.6 g/dL (31-35); MEAN CORPUSCULAR VOLUME 85.9 fL (81-99); MONOCYTES # (AUTO) 0.5 (0.2-0.8); MONOCYTES % 4.7 % (4.4-11.3); NEUTROPHILS # (AUTO) 6.5 (2.1-6.9); NEUTROPHILS % 62.1 % (38.7-80.0); PLATELET COUNT 371 x10e3/uL (140-360); RED BLOOD COUNT 5.02 x10e6/uL (4.3-5.7); RED CELL DISTRIBUTION WIDTH 12.2 % (11.7-14.4)
[2019-04-09 16:02] LABS: ANION GAP 16.9 mmol/L (8-16); BLOOD UREA NITROGEN 10 mg/dL (7-26); BUN/CREATININE RATIO 10 (6-25); CALCIUM 9.8 mg/dL (8.4-10.2); CARBON DIOXIDE 24 mmol/L (22-29); CHLORIDE 99 mmol/L (98-107); CREATININE, SERUM 0.97 mg/dL (0.72-1.25); EST GLOMERULAR FILTRATION RATE > 60 ML/MIN (60-); GLUCOSE 92 mg/dL (74-118); POTASSIUM 3.9 mmol/L (3.5-5.1); SODIUM 136 mmol/L (136-145)
[~2019-04-12] VITALS: Ht 172.7 cm; Wt 120.2 kg
[~2019-04-12 08:04] MED LIST changes: -DIATRIZOATE MEGL/DIATRIZOA SOD 30 ML BTL PO ONE; -IOPAMIDOL 370 MG/ML 200 ML INFUS..BTL INJ ONE; -KEFLEX500 MG PO; -SODIUM CHLORIDE 0.9% 50ML 50 ML ONE
--- OUTSIDE RECORDS SUMMARY | 2019-04-12 08:06 | XMS REPORT | Encounter Summary ---
Author Organization Unknown Address [address] [place] [id number] Phone [phone] Care Team Providers Care Fleet Sales Associate Name Role Phone Dr. John Paul Shine 3 [phone] Trista Lee MD 3 [phone] Jamarcus Ivan MD 107 [phone] Nathan Reece MD 107 [phone] Reason for Visit Benign essential hypertension Instructions 1. Benign essential hypertension lisinopril 20 mg-hydrochlorothiazide 12.5 mg tablet CMP, serum or plasma lipid panel, serum CBC w/ auto diff 2. Morbid obesity learning about healthy weight phentermine 37.5 mg tablet 3. Hyperlipidemia high cholesterol: care instructions 4. Influenza vaccination declined 5. Crohn's disease 6. Furuncle Bactrim DS 800 mg-160 mg tablet Discussion Note: None recorded. Plan of Care Reminders Provider Appointments Est CPX on or around 03/23/2019 John Paul Shine MD Lab CMP, Serum or Plasma 02/20/2019 [facility] Lipid Panel, Serum 02/20/2019 [facility] CBC W/ Auto Diff 02/20/2019 [facility] Referral None recorded. Procedures None recorded. Surgeries None recorded. Imaging None recorded. Medications Name Start Date Bactrim DS 800 mg-160 mg tablet Take 1 tablet every 12 hours by oral route. lisinopril 20 mg-hydrochlorothiazide 12.5 mg tablet Take one(1) Tablet by mouth EVERY DAY phentermine 37.5 mg tablet Take 1 tablet every day by oral route in the morning for 30 days. Medications Administered None recorded. Vitals Height Weight BMI Blood Pressure 5 ft 8.5 in 286 lbs 42.9 kg/m2 138/86 mm[Hg] Results Lab Results None recorded. Allergies Code Code System Name Reaction Severity Status Onset NKDA Problems Name Status Onset Date Source Benign Essential Hypertension Active 04/21/2015 Morbid Obesity Active 09/15/2015 Hyperlipidemia Active 12/21/2016 Crohn's Disease Active 02/20/2019 Procedures None recorded. Vaccine List Vaccine Type Hep A, adult 09/20/2017 Hep A-Hep B mL mL Tdap mL typhoid, ViCPs 09/20/20170.5 mL Social History Tobacco Smoking Status Never Smoker Past Encounters 02/20/2019 Benign Essential Hypertension; Morbid Obesity; Hyperlipidemia; Influenza Vaccination Declined; Crohn's Disease; Furuncle John Paul Shine MD: [address] [facility], [address], [place] [address], Ph. History of Present Illness Note:crohns- no complaints, asymptomatic; htn - no complaints, asymptomatic; boils R leg - drained pus Review of Systems Comprehensive General Adult ROS Reported By: Patient Cardiovascular: Cardiovascular: no chest pain Respiratory: Respiratory: no shortness of breath Physical Exam General Adult Exam (male) Reported By: Patient Constitutional: General Appearance: healthy-appearing. Level of Distress: NAD Psychiatric: Mental Status: active and alert Lungs: Respiratory effort: no dyspnea. Auscultation: breath sounds normal Cardiovascular: Heart Auscultation: RRR, normal S1, normal S2, no murmurs. Neck vessels: no carotid bruits Abdomen: Inspection and Palpation: soft, no tenderness, no masses. Liver: non-tender, no hepatomegaly. Spleen: non-tender, no splenomegaly. Hernia: none palpable Skin: Inspection and palpation: lesion; R leg perifollicular induration - no fluctuance
--- OUTSIDE RECORDS SUMMARY | 2019-04-12 08:06 | XMS REPORT | Encounter Summary ---
Author Organization Unknown Address [address] [place] [id number] Phone [phone] Care Team Providers Care Hearing Screen Coordinator Name Role Phone Dr. John Paul Shine 3 [phone] Trista Lee MD 3 [phone] Jamarcus Ivan MD 107 [phone] Nathan Reece MD 107 [phone] Reason for Visit Morbid obesity; Abnormal liver function Instructions 1. Liver function tests abnormal US, liver hepatic function panel, serum HBsAg (hepatitis B surface Ag), confirmation, serum hepatitis C virus RNA, quant, PCR, serum or plasma actin smooth muscle Ab, serum iron + TIBC + ferritin, serum 2. Morbid obesity learning about healthy weight 3. Crohn's disease 4. Benign essential hypertension lisinopril 20 mg-hydrochlorothiazide 12.5 mg tablet Discussion Note: None recorded. Plan of Care Reminders Provider Appointments Est Patient on or around 04/22/2019 John Paul Shine MD Lab Hepatic Function Panel, Serum 03/22/2019 [facility] HBsAg (Hepatitis B Surface Ag), Confirmation, Serum 03/22/2019 [facility] Hepatitis C Virus RNA, Quant, PCR, Serum or Plasma 03/22/2019 [facility] Actin Smooth Muscle Ab, Serum 03/22/2019 [facility] Iron + TIBC + Ferritin, Serum 03/22/2019 [facility] Referral None recorded. Procedures None recorded. Surgeries None recorded. Imaging US, Liver 03/22/2019 [facility] Radiology [facility] Medications Name Start Date lisinopril 20 mg-hydrochlorothiazide 12.5 mg tablet Take one(1) Tablet by mouth EVERY DAY phentermine 37.5 mg tablet Take 1 tablet every day by oral route in the morning for 30 days. Medications Administered None recorded. Vitals Height Weight BMI Blood Pressure 5 ft 8.5 in 279 lbs 41.8 kg/m2 122/90 mm[Hg] Results Lab Results Date Name Specimen Result Interpretation Description Value Range Status Address 02/21/2019 CBC W/ Auto Diff Wbc 8.74 x10*3/L 4.23-9.07 x10*3/L Final [facility] [address] [facility] [facility] 5.03 10*12/L 4.63-6.08 10*12/L Final [facility] [address] [facility] Hemoglobin 14.80 g/dL 13.70-17.50 g/dL Final [facility] [address] [facility] Hematocrit 44.7 % 40.1-51.0 % Final [facility] [address] [facility] Mcv 88.9 fL 80.0-100.0 fL Final [facility] [address] [facility] Mch 29.4 pg 25.7-32.2 pg Final [facility] Laboratory: [address] [place] [address] Mchc 33.1 g/dL 32.3-36.5 g/dL Final [facility] [address] [facility] RDW-SD 40.3 fL 35.1-43.9 fL Final [facility] [address] [facility] High Platelet Count 445.0 k/uL 163.0-337.0 k/uL Final [facility]: [address] [facility] Mpv 9.9 fL 7.5-11.5 fL Final [facility] Laboratory: [address] [place] [address] Neut% 60.9 % 34.0-67.9 % Final [facility] Laboratory: [address] [place] [address] Lymph% 30.0 % 21.8-53.1 % Final [facility] Laboratory: [address] Mon% 5.4 % 5.3-12.2 % Final [facility] [address] [facility] Eos% 3.1 % 0.8-7.0 % Final [facility] Laboratory: [address] Baso% 0.6 % 0.2-1.2 % Final [facility] Laboratory: [address] [place] [address] Neut# 5.3 x10*3/L 1.8-5.4 x10*3/L Final [facility] Laboratory: [address] [place] Lymph# 2.6 x10*3/L 1.3-3.6 x10*3/L Final [facility] Laboratory: [address] [place] Mon# 0.5 x10*3/L 0.3-0.8 x10*3/L Final [facility] Laboratory: [address] [place] Eos# 0.27 x10*3/L 0.04-0.54 x10*3/L Final [facility] Laboratory: [address] [place] Baso# 0.05 x10*3/L 0.01-0.08 x10*3/L Final [facility] [address] [facility] [facility]2019 CMP, Serum or Plasma High Alt 182 U/L 0-55 U/L Final [facility] Laboratory: [address] [place] [address] High Ast 67 U/L 5-34 U/L Final [facility] Laboratory: [address] [place] [address] Bun 13.0 mg/dL 8.9-25.0 mg/dL Final [facility] Laboratory: [address] [place] [address] Alk Phos 89 unit/L 40-150 unit/L Final [facility]: [address] [place] [address] High Glucose 110 mg/dL 70-99 mg/dL Final [facility] Laboratory: [address] [place] [address] Albumin 4.1 g/dL 3.4-5.1 g/dL Final [facility] Laboratory: [address] Creatinine 0.96 mg/dL 0.72-1.25 mg/dL Final [facility] Laboratory: [address] [place] [address] eGFR Non- >60 mL/min/1.73m2 Final [facility] Laboratory: [address] Total Bilirubin 0.6 mg/dL 0.2-1.2 mg/dL Final [facility] Laboratory: [address] eGFR - >60 mL/min/1.73m2 Final [facility] Laboratory: [address], [place] Sodium 136 mEq/L 135-145 mEq/L Final [facility] Laboratory: [address], [place] Potassium 4.7 mEq/L 3.5-5.1 mEq/L Final [facility] Laboratory: [address], [place] Chloride 101 mmol/L 98-110 mmol/L Final [facility] Laboratory: [address] [place], [place] Total Protein 8.1 g/dL 6.1-8.2 g/dL Final [facility] Laboratory: [address], [place] Calcium 9.5 mg/dL 8.6-10.4 mg/dL Final [facility] Laboratory: [address], [place] Co2 23.6 mmol/L 20.0-32.0 mmol/L Final [facility] Laboratory: [address], [place] Anion Gap 11 calc Final [facility] Laboratory: [address], [place] 02/21/2019 Lipid Panel, Serum Hdl 44 mg/dL Final [facility] Laboratory: [address] [place] [address] Triglyceride 129 mg/dL 0-150 mg/dL Final [facility] Laboratory: [address] VLDL (Calculated) 26 mg/dL Final [facility] Laboratory: [address] [place] [address] cholesterol/HDL Ratio 4.3 mg/dL Final [facility] Laboratory: [address] non-HDL Cholesterol (Calculated) 145 mg/dL 0-160 mg/dL Final [facility] Laboratory: [address] Cholesterol 189 mg/dL 0-200 mg/dL Final [facility] Laboratory: [address] [place] [address], [place] LDL (Calculated) 119 mg/dL 0-130 mg/dL Final [facility] Laboratory: [address] Allergies Code Code System Name Reaction Severity Status Onset NKDA Problems Name Status Onset Date Source Benign Essential Hypertension Active 04/21/2015 Morbid Obesity Active 09/15/2015 Hyperlipidemia Active 12/21/2016 Crohn's Disease Active 02/20/2019 Thrombocytosis Active 02/22/2019 Steatosis of Liver Active 03/22/2019 Procedures Date Name Performed by 03/22/2019 [place], [facility] Radiology [facility] [address] [facility] [address] [place] [address] (Work Place) Vaccine List Vaccine Type Hep A, adult 09/20/2017 Hep A-Hep B mL mL Tdap mL typhoid, ViCPs 09/20/20170.5 mL Social History Tobacco Smoking Status Never Smoker Past Encounters 03/22/2019 Liver Function Tests Abnormal; Morbid Obesity; Crohn's Disease; Benign Essential Hypertension John Paul Shine MD: [address] [facility], [address], [place] [address], Ph. 02/20/2019 Benign Essential Hypertension; Morbid Obesity; Hyperlipidemia; Influenza Vaccination Declined; Crohn's Disease; Furuncle John Paul Shine MD: [address] [facility], [address], [place] [address], Ph. History of Present Illness Note:fatty liver no complaints, asymptomatic Review of Systems Comprehensive General Adult ROS [...]
[2019-04-12] MEDS ORDERED: CEFAZOLIN SOD 1 GM/NS 50ML 50 ML IV ONE ×2 (08:35→09:49)
[2019-04-12] MEDS ORDERED: BACITRACIN ZINC 15 GM OINT ONE (09:01)
[2019-04-12] MEDS ORDERED: BACITRACIN 50,000 UNIT VIAL ONE ×2 (09:02→15:00)
[2019-04-12] MEDS ORDERED: CEFAZOLIN SOD 1 GM/NS 50ML 0 ML IV ONE (10:21)
[2019-04-12] MEDS ORDERED: DEXMEDETOMIDINE HCL 2 ML ONE (12:47)
[2019-04-12] MEDS ORDERED: LIDOCAINE HCL 2% LOCAL INJ 5 ML SDV VIAL INJ ONE ×2 (14:16→14:25)
[2019-04-12] MEDS ORDERED: DEXAMETHASONE SOD PHOS INJ 4 MG/ML VIAL ONE ×2 (14:16→14:25)
[2019-04-12] MEDS ORDERED: ROCURONIUM BROMIDE 10 MG/ML 5ML VIAL ONE ×2 (14:16→14:25)
[2019-04-12] MEDS ORDERED: SEVOFLURANE INHAL SOLN 250 ML PEN BTL ONE ×2 (14:16→14:25)
[2019-04-12] MEDS ORDERED: PROPOFOL IV EMULSION 10 MG/ML 20 ML VIAL ONE ×2 (14:16→14:25)
[2019-04-12] MEDS ORDERED: ACETAMINOPHEN 1000 MG/100 ML IV ONE ×2 (14:16→14:25)
[2019-04-12] MEDS ORDERED: ONDANSETRON HCL INJ 2MG/ML 2ML 2 MG/ML VIAL ONE (14:25)
[2019-04-12] MEDS ORDERED: LIDOCAINE HCL 2% JELLY 5 ML TUBE ONE (14:25)
[2019-04-12] MEDS ORDERED: GLYCOPYRROLATE INJ 0.2 MG/ML VIAL ONE (14:25)
[2019-04-12] MEDS ORDERED: NEOSTIGMINE 1 MG/ML 10ML VIAL ONE (14:25)
[2019-04-12] MEDS ORDERED: CEFAZOLIN SOD 1 GM VIAL ONE ×2 (14:25→15:04)
[2019-04-12] MEDS ORDERED: FENTANYL CITRATE/PF 100MCG/2 ML INJ ONE ×2 (14:36→16:52)
[2019-04-12] MEDS ORDERED: MIDAZOLAM HCL 2 MG/2 ML VIAL ONE (14:36)
[2019-04-12] MEDS ORDERED: IBUPROFEN 800MG/ 200ML 200 ML IV ONE (14:56)
[2019-04-12] MEDS ORDERED: BUPIVACAINE 0.5%/EPI 30 ML SDV INJ ONE (15:24)
[2019-04-12] MEDS ORDERED: LIDOCAINE 1% W/EPINEPHRINE 20 ML VIAL ONE (15:24)
[2019-04-12] MEDS ORDERED: DIPHENHYDRAMINE HCL INJ 50 MG/ML VIAL IM PRN (16:45)
[2019-04-12] MEDS: LACTATED RINGER'S 1,000 ML INJ SCH (16:45)
[2019-04-12] MEDS ORDERED: NALOXONE HCL INJ 0.4 MG/ML AMP IV PRN (16:45)
[2019-04-12] MEDS ORDERED: HYDROMORPHONE 0.2MG/ML-SOD CHL 30ML PCA SYRINGE IV ONE (17:02)
--- NOTE | 2019-04-12 17:35 | Operative Report ---
DATE OF PROCEDURE: 04/12/2019 SURGEON: Arsalan Ivan MD PREOPERATIVE DIAGNOSES: Ventral hernia, obesity. POSTOPERATIVE DIAGNOSES: Ventral hernia and multiple Palauan cheese type of smaller hernia defect. PROCEDURE PERFORMED: 1. Omphalectomy. 2. Repair of a ventral hernias with the Ventralex large size and flat polypropylene mesh. DRAINS: Two 10 mm flat Giu-Andrade drains. COMPLICATIONS: None. 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 The patient was initially seen in my office. I asked him to lose weight when he got to a point where he could not get any more weight. We decided to proceed with the surgery at his request. He is nearly morbidly obese. INTRAOPERATIVE FINDINGS: The patient had a large about 8 cm defect located in the midportion of the abdomen at the area of the umbilicus and superior and inferior to that were multiple small cyst type of defects. We placed the Ventralex large mesh in the intraabdominal cavity, then closed the fascia and placed an onlay flat polypropylene mesh. After we closed the smaller defects primarily also, two 10 mm Gui-Andrade drains were drained the wound. DESCRIPTION OF PROCEDURE: With the patient lying on the operative table in the supine position with administration of general endotracheal anesthesia, he was prepped and draped. Given prophylactic antibiotics. Engel inserted and draped for repair of a ventral hernia. An elliptical incision was made around the umbilicus, which was excised down to the fascia, which was done in a horizontal fashion. We then developed a superior and inferior flaps with sharp and electrocautery dissection. We countered multiple smaller defects. Those were primarily closed after we cleaned the edges. Then, the larger defect measured about 8 cm was repaired first by placing a Ventralex large size mesh in the intraabdominal cavity. We then tacked the mesh to the abdominal wall in several locations to prevent any shrinking and then we closed the fascia over the mesh. After we did that, using a 12 x 12 inches polypropylene mesh, we covered the defects as well as the main defect by serially stitching and securing the mesh in eight quadrants 0 Ethibond and then the intervening and the quadrants were tagged using 2-0 Ethibond suture. The repair appeared to be strong. After we did that, we placed a few 2-0 Vicryl around the main defect that had been closed. Then, we copiously irrigated the wound with bacitracin containing solution. I then placed two 10 mm flat Gui-Andrade drains to drain the wound, which were crisscrossed and brought out through a stab wound inferior to the skin and secured there with a 2-0 silk. We then gave him a tap block using a mixture of 0.25% Marcaine with epinephrine and 1% Xylocaine with epinephrine also. We irrigated the wound several times before the closure. Then, we closed the subcu tissue using a combination of 0 and 2-0 chromic and the skin was closed using a combination of 2-0 silk vertical mattress and lorie. Sterile dressing was applied. The Gui-Andrade drains were connected it to self-suction. The patient's was informed that he needs to lose significant amounts of weight, otherwise risk in recurrence. MD YANNA Sellers/CIERA /[id number]
[2019-04-12 17:41] VITALS: BP 108/61
[2019-04-12 17:47] VITALS: BP 108/61
[2019-04-12] MEDS ORDERED: ACETAMINOPHEN 1000 MG/100 ML IV PRN (18:00)
[2019-04-12] MEDS: KETOROLAC TROMETHAMINE 30 MG/ML VIAL IV PRN (18:07)
[2019-04-12] MEDS: PIPER-TAZ 3.375 GM 50 ML IV SCH (18:07)
--- NOTE | 2019-04-12 19:16 | NUR ---
REPORT RECEIVED FROM DAY RN. PT IS ALERT AND ORIENTED X3. RESPIRATIONS EVEN AND UNLABORED. RESTING IN BED IN SEMI-FOWLERS POSITION. SERVICES ENGINEER DILAUDID FOR PAIN CONTROL.ABDOMINAL DRESSING DRY AND INTACT. ABDOMINAL BINDER ON. ABELARDO CHARGED DRAINAGE BLOODY-SMALL AMOUNT IN ABELARDO. LT ABELARDO DRAIN CHARGED AND DRAINING SMALL AMOUNT OF BLOODY DRAINAGE.HERNANDEZ CATHETER PATENT- URINE CLEAR YELLOW IN COLOR.
--- NOTE | 2019-04-12 19:28 | NUR ---
Report given to selvage machine operator. Respiration even and unlabored without SOB. Call light in reach.
[2019-04-12 19:40] VITALS: BP 111/59
--- NOTE | 2019-04-12 22:00 | NUR ---
HERNANDEZ/MEATAL CARE GIVEN WITH XIN WIPES X3.
[2019-04-12 22:11] VITALS: BP 111/59
[2019-04-13] VITALS (10 sets, daily range): BP systolic 89–132; BP diastolic 52–80
[2019-04-13] MEDS: PIPER-TAZ 3.375 GM 50 ML IV SCH ×4 (00:15→17:33)
[2019-04-13] MEDS: KETOROLAC TROMETHAMINE 30 MG/ML VIAL IV PRN ×5 (01:10→21:27)
[2019-04-13] MEDS: HYDROMORPHONE 0.2MG/ML-SOD CHL 30ML PCA SYRINGE IV PRN ×3 (01:11→23:25)
[2019-04-13] MEDS: LACTATED RINGER'S 1,000 ML INJ SCH ×3 (02:20→20:03)
[2019-04-13] MEDS: ONDANSETRON HCL INJ 2MG/ML 2ML 2 MG/ML VIAL IV PRN ×3 (03:27→20:10)
[2019-04-13 05:32] LABS: BASOPHILS % 0.1 % (0.0-1.0); EOSINOPHILS % 0.2 % (0.0-6.0); HEMATOCRIT 38.7 % (38.2-49.6); HEMOGLOBIN 12.7 g/dL (14.0-18.0); LYMPHOCYTES # (AUTO) 1.7 (1.0-3.2); LYMPHOCYTES % 13.6 % (18.0-39.1); MEAN CORPUSCULAR HEMOGLOBIN 29.1 pg (28-32); MEAN CORPUSCULAR HGB CONC 32.8 g/dL (31-35); MEAN CORPUSCULAR VOLUME 88.8 fL (81-99); MONOCYTES # (AUTO) 0.8 (0.2-0.8); MONOCYTES % 6.3 % (4.4-11.3); NEUTROPHILS # (AUTO) 9.8 (2.1-6.9); NEUTROPHILS % 79.3 % (38.7-80.0); PLATELET COUNT 362 x10e3/uL (140-360); RED BLOOD COUNT 4.36 x10e6/uL (4.3-5.7); RED CELL DISTRIBUTION WIDTH 12.3 % (11.7-14.4)
[2019-04-13 05:55] LABS: ANION GAP 14.3 mmol/L (8-16); BLOOD UREA NITROGEN 13 mg/dL (7-26); BUN/CREATININE RATIO 12 (6-25); CALCIUM 8.7 mg/dL (8.4-10.2); CARBON DIOXIDE 24 mmol/L (22-29); CHLORIDE 103 mmol/L (98-107); CREATININE, SERUM 1.05 mg/dL (0.72-1.25); EST GLOMERULAR FILTRATION RATE > 60 ML/MIN (60-); GLUCOSE 116 mg/dL (74-118); POTASSIUM 4.3 mmol/L (3.5-5.1); SODIUM 137 mmol/L (136-145)
--- NOTE | 2019-04-13 07:33 | NUR ---
Pt received in bed with eyes open. Pt continuous on LEAD PORTFOLIO MANAGER pump, pain is tolerable at this time. Engel and draining light yellow clear urine.
--- NOTE | 2019-04-13 15:45 | NUR ---
Removed adame catheter per physician orders at this time.
--- NOTE | 2019-04-13 19:00 | NUR ---
REPORT RECEIVED FROM PSIMS RN. PT IS ALERT AND ORIENTED X3. PT REPORTS PAIN 5/10 IN ABDOMEN S/P VENTRAL HERNIA REPAIR.PT REMAINS ON ADMISSION SPECIALIST HYDROMORPHONE ADMISSION SPECIALIST PUMP- PT REPORT PAIN CONTROLLED. ABDOMINAL BINDER ON. ABELARDO DRAIN RT AND LEFT CHARGED SEROUSANGUINOUS DRAINAGE.FAMILY VISITING IN ROOM. PIV 20G IN RT WRIST INTACT AND PATENT.PT DENIES NAUSEA.PT RESTING IN SEMIFOWLERS POSITION IN BED VISITING WITH FAMILY. PT HAS NOT VOIDED AFTER HERNANDEZ D/C WILL CONTINUE TO MONITOR.
[2019-04-14] VITALS (7 sets, daily range): BP systolic 127–146; BP diastolic 60–93
[2019-04-14] MEDS: PIPER-TAZ 3.375 GM 50 ML IV SCH ×4 (00:57→18:17)
[2019-04-14] MEDS: LACTATED RINGER'S 1,000 ML INJ SCH ×4 (03:53→22:59)
[2019-04-14] MEDS: KETOROLAC TROMETHAMINE 30 MG/ML VIAL IV PRN ×4 (04:07→22:59)
[2019-04-14] MEDS: ONDANSETRON HCL INJ 2MG/ML 2ML 2 MG/ML VIAL IV PRN ×3 (04:18→18:29)
--- NOTE | 2019-04-14 07:42 | NUR ---
Pt received in room ambulating. 0 s/s of acute distress noted. ABELARDO drains to left and right abdomen in place draining sanguinous drainage. Abdominal binder in place and dry. Pain is tolerable at this time at 4/10.
[2019-04-14] MEDS: HYDROMORPHONE 0.2MG/ML-SOD CHL 30ML PCA SYRINGE IV PRN (13:25)
--- NOTE | 2019-04-14 19:30 | NUR ---
REPORT RECEIVED FROM PSIMS RN. PT IS ALERT AND ORIENTED X3. PT REPORTS PAIN 5/10 IN ABDOMEN S/P VENTRAL HERNIA REPAIR.PT REMAINS ON SUPERVISOR SOLDERING HYDROMORPHONE SUPERVISOR SOLDERING PUMP- PT REPORT PAIN CONTROLLED. ABDOMINAL BINDER ON. ABELARDO DRAIN RT AND LEFT CHARGED SEROUSANGUINOUS DRAINAGE.FAMILY VISITING IN ROOM. PIV 20G IN RT WRIST INTACT AND PATENT.PT DENIES NAUSEA.PT RESTING IN SEMI-FOWLERS POSITION IN BED VISITING WITH FAMILY. PT VOIDING WITHOUT DIFFICULTY.
[2019-04-15] MEDS: PIPER-TAZ 3.375 GM 50 ML IV SCH ×3 (00:11→12:04)
[2019-04-15] MEDS: HYDROMORPHONE 0.2MG/ML-SOD CHL 30ML PCA SYRINGE IV PRN (00:23)
[2019-04-15] MEDS: ONDANSETRON HCL INJ 2MG/ML 2ML 2 MG/ML VIAL IV PRN ×3 (00:30→14:08)
[2019-04-15 00:42] VITALS: BP 139/91
[2019-04-15 04:00] VITALS: BP 138/96
--- NOTE | 2019-04-15 07:00 | NUR ---
RECEIVED PATIENT AWAKE RESTING IN BED. NO S/S OF DISTRESS. BED LOW, WHEELS LOCKED, SIDE RAILS X2. CALL LIGHT IN REACH WILL CONTINUE TO MONITOR PATIENT.
[2019-04-15] MEDS: LACTATED RINGER'S 1,000 ML INJ SCH (07:08)
[2019-04-15] MEDS: KETOROLAC TROMETHAMINE 30 MG/ML VIAL IV PRN ×2 (07:14→14:08)
[2019-04-15 07:44] VITALS: BP 161/85
[2019-04-15 08:18] VITALS: BP 161/85
[2019-04-15] MEDS ORDERED: NORCO 7.5-3251 EACH PO (11:34)
[2019-04-15] MEDS ORDERED: KEFLEX500 MG PO (11:35)
[2019-04-15 11:45] VITALS: BP 164/92
--- NOTE | 2019-04-15 12:07 | Discharge Summary ---
DISCHARGE DIAGNOSES: Ventral hernias, status post Steven's procedure, status post reversal of colostomy, morbid obesity, and history of hypertension. PROCEDURES PERFORMED DURING THIS HOSPITALIZATION: Procedures performed on April 12, repair of ventral hernias with Ventralex large type and polypropylene flat mesh by Rex Ivan. HISTORY OF PRESENT ILLNESS AND HOSPITALIZATION COURSE: The patient is a male with a history of hypertension, obesity, who had undergone in 2018, Steven procedure for perforated complicated sigmoid diverticulitis, followed by reversal of colostomy, now presents for closure. The patient during this hospitalization was treated with a COUNTER ROLLER pump because of significant amount of pain. He experienced some nausea throughout the hospitalization course. At the time of discharge, the pain was controlled. The nausea was resolved and he was discharged home, tolerating a regular diet well. He had two Gui-Andrade drains that were left in situ. He will be followed up at the office on Monday and at that point, the drains will be removed. He was given Keflex 1 p.o. q.6 hours, total #20 and Hartwick 7.5/3.25 mg of Tylenol p.r.n. for pain. He had no work tolerance. Instructions were given. The patient has been advised to lose weight. MD YANNA Sellers/CIERA /[id number]
--- NOTE | 2019-04-15 14:05 | NUR ---
REMOVED PATIENTS IV. CATHETER TIP INTACT AND PRESSURE DRESSING APPLIED.
--- NOTE | 2019-04-15 14:14 | NUR ---
PATIENT DISCHARGED FROM FACILITY. PATIENT GATHERED ALL PERSONAL BELONGINGS, DISCHARGE INSTRUCTIONS, AND FOLLOW UP INFORMATION. PATIENT LEFT UNIT IN WHEELCHAIR AND WENT HOME VIA PRIVATE AUTO. NO SIGNS OF DISTRESS WHEN LEAVING FACILITY.
== END 2019-04-15 14:16 | disposition home or self-care (01) | DRG 354 ==
LOC: OR 08:04 → PACU V 16:39 → OBSVTOIN 16:39 → MED/SURG 17:31 → INTOOBSV 04-13 09:10 → OBSVTOIN 04-13 09:10
PROVIDERS: ADMIT Surgery; ATTEND Surgery
PROC: 0WUF0JZ Supplement Abdominal Wall with Synthetic Substitute, Open Approach (ICD-10-PCS; 2019-04-12)
PROC: 0WBF0ZZ Excision of Abdominal Wall, Open Approach (ICD-10-PCS; principal; 2019-04-12 12:24)
DX: K43.9 Ventral hernia without obstruction or gangrene (principal); Z68.41 Body mass index [BMI] 40.0-44.9, adult; E66.01 Morbid (severe) obesity due to excess calories; I10 Essential (primary) hypertension; R11.0 Nausea
CPT/HCPCS: 36415; 80048; 85025; 88302; 88304; 93005; C1781; G0378; J0690; J1100; J1885; J2001; J2250; J2405; J2543; J2710; J3010; J7121